=== PATIENT | female | born 1955 | race Native Hawaiian/Other Pacific Islander ===

== ENCOUNTER → 2018-05-12 | Outpatient (CLI) | payer MEDICARE ==
--- NOTE | 2018-05-12 18:49 | BD ---
EXAMINATION TYPE: Axial Bone Density DATE OF EXAM: 05/12/2018 COMPARISON: NONE CLINICAL HISTORY: 63 YR OLD FEMALE.....ICD-10 CODE: M85.80 DISORDER OF BONE DENSITY Height: 63.3 Weight: 211 FRAX RISK QUESTIONS: Secondary Osteoporosis: YES 1. Type 1 Diabetes: YES 5. Chronic liver disease: FATTY LIVER RISK FACTORS HISTORY OF: Family History of Osteoporosis: YES, HER MOTHER BUT NO FRACTURE TO HIP Diet low in dairy products/other sources of calcium: LACTOSE INTOLERANT Postmenopausal woman: YES, TOTAL HYST AT 46 YRS OLD Take estrogen and/or progesterone medications: BCP X4 1/2 YRS, IN THE PAST MEDICATIONS: Prednisone or other steroids: ASTHMA INHALERS IN PAST NONE FOR LAST 2 YRS Additional Medications: DIABETIC MEDS AND INSULIN, CALCIUM, REFLUX MEDS, STATINS FOR CHOLESTEROL Additional History: DIABETIC EXAM MEASUREMENTS: Bone mineral densitometry was performed using the [employer] System. Bone mineral density as measured about the Lumbar spine is: ----- L1-L4(G/cm2): 1.157 T Score Values are as follows: ----- L1: -1.3 ----- L2: -0.3 ----- L3: 0.4 ----- L4: .01 ----- L1-L4: -0.2 Bone mineral density FIRST BONE DENSITY AT MPH Bone mineral density about the R hip (g/cm2): 0.938 Bone mineral density about the L hip (g/cm2): 0.909 T Score values are as follows: -----R Neck: -1.7 -----L Neck: -2.1 -----R Total: -0.5 -----L Total: -0.8 Bone mineral density FIRST BONE DENSITY AT MPH FRAX%s: THERE IS A 5.4% CHANCE FOR A MAJOR OSTEOPOROTIC FX AND A 0.7% FOR HIP FX...PROBABILITY OF FX IN 10 YRS TIME IMPRESSION: Osteopenia (T Score between -2.5 and -1). There is slightly increased risk of fracture and the patient may be considered for treatment. Re-Screen 2-5 years. NOTE: T-SCORE=SD OF THE YOUNG ADULT MEAN.
--- NOTE | 2018-05-16 08:44 | MM ---
Reason for exam: screening (asymptomatic). Last mammogram was performed 13 years and 11 months ago. History: Patient is postmenopausal. Family history of breast cancer in maternal aunt. Cyst aspiration of the right breast. Took hormonal contraceptives for 4 years 6 months. Physical Findings: A clinical breast exam by your physician is recommended on an annual basis and results should be correlated with mammographic findings. MG 3D Screening Mammo W/Cad Bilateral CC and MLO view(s) were taken. Prior study comparison: April 07, 2016, mammogram. June 26, 2014, mammogram. The breast tissue is heterogeneously dense. This may lower the sensitivity of mammography. Benign appearing bilateral calcifications. No suspicious abnormality. No significant changes when compared with prior studies. ASSESSMENT: Benign, BI-RAD 2 RECOMMENDATION: Routine screening mammogram of both breasts in 1 year.
== END | disposition home or self-care (01) ==
LOC: RADMAMWWP 12:55
PROVIDERS: ATTEND Family Medicine
DX: Z12.31 Encounter for screening mammogram for malignant neoplasm of breast (principal); M85.80 Other specified disorders of bone density and structure, unspecified site
CPT/HCPCS: 77063; 77067; 77080

== ENCOUNTER 2019-05-16 20:10 | Emergency (ER) | payer MEDICARE ==
[2019-05-16 20:50] VITALS: TEMP 98.5
[2019-05-16] MEDS ORDERED: MORPHINE SULFATE 4 MG/ML SYRINGE IM STA (21:05)
[2019-05-16] MEDS ORDERED: KETOROLAC 30 MG/ML 1 ML VIAL IM STA (21:10)
--- NOTE | 2019-05-16 22:05 | XR ---
EXAMINATION TYPE: XR knee 4V LT DATE OF EXAM: 05/16/2019 COMPARISON: NONE HISTORY: Knee pain TECHNIQUE: 4 views FINDINGS: There is nondisplaced transverse fracture of the patella. There is mild soft tissue swellin g. There is knee joint effusion. There is mild narrowing and spurring of the medial femoral and tibia l condyles. Distal femur and proximal tibia and fibula appear intact. IMPRESSION: Small knee joint effusion. Mild osteoarthritis. Acute nondisplaced patella fracture.
--- NOTE | 2019-05-16 22:38 | ED ---
General Adult HPI - General Chief complaint: Fall Stated complaint: Knee Injury Time Seen by Provider: 05/16/19 20:51 Source: patient, RN notes reviewed, old records reviewed Mode of arrival: wheelchair Limitations: no limitations - History of Present Illness Initial comments: 64-year-old female patient with SC chief complaint of left knee injury. Patient reports that she was walking, became tangled on her purse, fell forward on her left flexed knee. Patient poorly currently has pain in the left anterior patellar region. His not ambulatory since fall. Denies any trauma to head or neck. Denies use of blood thinners. Denies any other complaints. Systemic: Pt denies fatigue, fever/chills, rash. Pt denies weakness, night sweats, weight loss. Neuro: Pt denies headache, visual disturbances, syncope or pre-syncope. HEENT: Pt denies ocular discharge or irritation, otalgia, rhinorrhea, pharyngitis or notable lymphadenopathy. Cardiopulmonary: Pt denies chest pain, SOB, heart palpitations, dyspnea on exertion. Abdominal/GI: Pt denies abdominal pain, n/v/d. : Pt denies dysuria, burning w/ urination, frequency/urgency. Denies new onset urinary or bowel incontinence. MSK: Pt denies myalgia, loss of strength or function in extremities. Neuro: Pt denies new onset weakness, paresthesias. - Related Data Home Medications Medication Instructions Recorded Confirmed Calcium Carbonate [Tums] 200 mg PO BID 07/08/16 07/22/16 Canagliflozin [Invokana] 100 mg PO DAILY 07/08/16 07/22/16 Cholecalciferol [Vitamin D3] 2,000 unit PO DAILY 07/08/16 07/22/16 Cyanocobalamin [Vitamin B-12] 1,000 mcg PO DAILY 07/08/16 07/22/16 Cyclobenzaprine [Flexeril] 10 mg PO TID 07/08/16 07/22/16 Hgh Serovital 4 cap PO HS 07/08/16 07/22/16 Ibuprofen [Motrin] 800 mg PO Q8HR PRN 07/08/16 07/22/16 Insulin Aspart Protam & Aspart 85 unit SQ BID 07/08/16 07/22/16 [NovoLOG MIX 70-30 Flexpen] Liraglutide [Victoza 2-Lee] 1.2 mg SQ DAILY 07/08/16 07/22/16 Losartan [Cozaar] 25 mg PO DAILY 07/08/16 07/22/16 Pramipexole [Mirapex] 1 mg PO ONCE 07/08/16 07/22/16 Rosuvastatin Calcium [Crestor] 40 mg PO DAILY 07/08/16 07/22/16 Timolol 0.5% Ophth Soln [Timoptic 1 drop BOTH EYES DAILY 07/08/16 07/22/16 0.5% Ophth Soln] Zinc 50 mg PO DAILY 07/08/16 07/22/16 metFORMIN HCL 1,000 mg PO BID 07/08/16 07/22/16 Allergies Allergy/AdvReac Type Severity Reaction Status Date / Time hydrocodone [From Lortab] Allergy Swelling Verified 05/16/19 20:50 naproxen [From Aleve] AdvReac TOLD BY Verified 05/16/19 20:50 DOCTOR NOT TO TAKE AFTER CHOLECYSTECTOMY Review of Systems ROS Statement: Those systems with pertinent positive or pertinent negative responses have been documented in the HPI. ROS Other: All systems not noted in ROS Statement are negative. Past Medical History Past Medical History: Diabetes Mellitus, Eye Disorder, GERD/Reflux, Hyperlipidemia, Hypertension, Sleep Apnea/CPAP/BIPAP History of Any Multi-Drug Resistant Organisms: None Reported Past Surgical History: Cholecystectomy, Hysterectomy, Orthopedic Surgery Additional Past Surgical History / Comment(s): cervical fusion, laser eye surg(macular edema), left knee scope, ganglion cyst r wrist, right carpal tunnel, vericose veins Past Anesthesia/Blood Transfusion Reactions: No Reported Reaction Past Psychological History: No Psychological Hx Reported Smoking Status: Never smoker Past Alcohol Use History: None Reported Past Drug Use History: None Reported - Past Family History Mother Family Medical History: No Reported History General Exam - General Exam Comments Initial Comments: Constitutional: NAD, AOX3, Pt has pleasant affect. HEENT: NC/AT, trachea midline, neck supple, no lymphadenopathy. Posterior pharynx non erythematous, without exudates. External ears appear normal, without discharge. Mucous membranes moist. Eyes PERRLA, EOM intact. There is no scleral icterus. No pallor noted. Cardiopulmonary: RRR, no murmurs, rubs or gallops, no JVD noted. Lungs CTAB in anterior and posterior biswas. No peripheral edema. Abdominal exam: Abdomen soft and non-distended. Abdomen non-tender to palpation in all 4 quadrants. Bowel sounds active in LLQ. No hepatosplenomegaly. No ecchymosis Neuro: CN II-XII grossly intact. No nuchal rigidity. No raccon eyes, no howe sign, no hemotympanum. No cervical spinal tenderness. MSK: Left anterior patella nontender palpation. Distal pulses intact and equal. Patient does have pain with flexion and extension of knee. No posterior calf tenderness bilaterally, homans sign negative bilaterally. Posterior tibialis and radial pulse +2 bilaterally. Sensation intact in upper and lower extremities. Full active ROM in upper and lower extremities, 5/5 stregnth. Limitations: no limitations Course Vital Signs 05/16/19 20:48 Temperature 98.5 F Pulse Rate 89 Respiratory 20 Rate Blood Pressure 123/67 O2 Sat by Pulse 99 Oximetry Medical Decision Making - Medical Decision Making 64-year-old female patient with CVG complaint left knee pain after falling off flexed knee. Patient also in stable, afebrile. Physical exam displayed left anterior knee pain. Neurovascular intact. Plain films displayed a non- displaced patellar fracture. Patient placed in the immobilizer. Discharged wi th orthopedic follow-up. Case discussed with Dr. Carranza. Disposition Clinical Impression: Patella fracture Disposition: HOME SELF-CARE Condition: Stable Instructions (If sedation given, give patient instructions): Fall Prevention (ED), Patellar Fracture (ED) Additional Instructions: Patient to adhere to previously discussed treatment plan and will take medication(s) as directed. Patient to follow up with PCP in 1-2 days. Patient to return to ED if symptoms do not improve. Continued to her knee immobilizer. Follow up with orthopedic consult tomorrow. Use crutches, do not bear weight on left flexion. Is patient prescribed a controlled substance at d/c from ED?: No Referrals: Melinda Chau MD [Primary Care Provider] - 1-2 days Rahul Stephenson MD [STAFF PHYSICIAN] - 1-2 days
[2019-05-16 23:24] VITALS: BP 124/56; PULSE 90; RESP 18
== END 2019-05-16 23:26 | disposition home or self-care (01) ==
LOC: EC 20:10
DX: S82.002A Unspecified fracture of left patella, initial encounter for closed fracture (principal); E11.9 Type 2 diabetes mellitus without complications; E78.5 Hyperlipidemia, unspecified; I10 Essential (primary) hypertension; G47.30 Sleep apnea, unspecified; Z88.5 Allergy status to narcotic agent; Z88.6 Allergy status to analgesic agent; Z79.4 Long term (current) use of insulin; Z79.899 Other long term (current) drug therapy; Z86.69 Personal history of other diseases of the nervous system and sense organs; Z99.89 Dependence on other enabling machines and devices; W01.0XXA Fall on same level from slipping, tripping and stumbling without subsequent striking against object, initial encounter; Y93.01 Activity, walking, marching and hiking; Y92.89 Other specified places as the place of occurrence of the external cause; Z53.8 Procedure and treatment not carried out for other reasons
CPT/HCPCS: 73564; 99284; 96372; L1830; J1885

== ENCOUNTER → 2019-10-02 | Outpatient (CLI) | payer MEDICARE ==
--- NOTE | 2019-10-02 13:22 | MR ---
MR neck with and without contrast HISTORY: Posterior neck mass Multiplanar multisequence and postcontrast images obtained through the neck following 9.5 cc Gadavist IV. Overlying marker placed at the site of patient's clinical abnormality. Correlation to prior MR cervical spine 09/08/2011 At the site of the patient's overlying marker in the posterior neck there is underlying normal fat si gnal present as well as some irregular linear low signal on T1 and T2-weighted sequences possibly rel ated to patient's prior surgery. Previous identification of a mass which shows fat signal on prior ex am is no longer seen. There is no abnormal enhancement following contrast administration. Postop changes noted status post anterior cervical fusion and discectomy at C4-5, there is susceptibi lity artifact due to patient's hardware. Skull base shows no evident abnormality. Parotid glands, sub lingual glands show symmetric appearance. Airway appears patent. No evident superior mediastinal or c ervical adenopathy. A lobulated focus, cluster of grapes appearance at the level of the right distal clavicle immediately posterior on coronal image 20 series 301, axial image 14 series 401 is T1 isointense, T2 hyperintens e and measures 1.8 x 1.4 x 1.2 cm, no enhancement. IMPRESSION: Findings at the clinical abnormality may be related to patient's scar. Previously identif ied probable lipoma is no longer seen, correlate for any history of prior surgical excision. Postop c hangshara. Probable ganglion cyst partially visualized towards the right shoulder as described.
== END | disposition home or self-care (01) ==
LOC: RADMRIMAIN 09:10
PROVIDERS: ATTEND Surgery
DX: R22.1 Localized swelling, mass and lump, neck (principal)
CPT/HCPCS: 70543; A9585

== ENCOUNTER 2021-04-12 08:33 | Inpatient (IN) | payer MEDICARE ==
[2021-04-12 09:08] LABS: Glucose,Whole Blood >600 mg/dL (75-99)
[2021-04-12] MEDS ORDERED: ONDANSETRON 4 MG/2 ML VIAL IVP STA (09:09)
[2021-04-12] MEDS ORDERED: SODIUM CHLORIDE 0.9% 1,000 ML IV STA (09:09)
[2021-04-12 09:31] LABS: VBG PH 6.92 (7.31-7.41)
[2021-04-12] MEDS ORDERED: SODIUM BICARB 8.4% 50 ML SYR (1 MEQ/ML) IV STA (09:32)
[2021-04-12] MEDS ORDERED: ACETAMINOPHEN TAB 500 MG TAB PO STA (09:32)
[2021-04-12 09:35] LABS: ALT 48 U/L (4-34); AST 69 U/L (14-36); African American GFR (CKD) 15 (>60 ml/min/1.73 sqM); Albumin 4.2 g/dL (3.5-5.0); Alkaline Phosphatase 123 U/L (38-126); Blood Urea Nitrogen 54 mg/dL (7-17); Calcium 8.8 mg/dL (8.4-10.2); Chloride 92 mmol/L (98-107); Creatine Kinase 184 U/L (30-135); Magnesium 2.8 mg/dL (1.6-2.3); Non-African American GFR(CKD) 13 (>60 ml/min/1.73 sqM); Sodium 130 mmol/L (137-145); Total Bilirubin 0.5 mg/dL (0.2-1.3); Total Protein 7.1 g/dL (6.3-8.2)
[2021-04-12 09:46] LABS: INR 0.9 (<1.2); Partial Thromboplastin Time 24.3 sec (22.0-30.0); Prothrombin Time 9.7 sec (9.0-12.0)
[2021-04-12 09:49] LABS: Glucose 714 mg/dL (74-99); Potassium 6.6 mmol/L (3.5-5.1)
[2021-04-12 09:50] LABS: Carbon Dioxide <5 mmol/L (22-30)
[2021-04-12] MEDS ORDERED: INSULIN REGULAR 100 UNIT/ML VIAL (IV) IV ONE (09:54)
--- NOTE | 2021-04-12 09:54 | ED ---
General Adult HPI - General Chief complaint: Nausea/Vomiting/Diarrhea Stated complaint: weak/vomiting/throat sore/fever Source: patient Mode of arrival: ambulatory - History of Present Illness Initial comments: 66 year old female presents with a history of insulin dependent diabetes. Patient states that she's been feeling sick for the past 6 days with nausea, vomiting and diarrhea. She also states she's been short of breath with a sore throat. Denies sick contacts with similar symptoms. No cold exposure. It has been Covid vaccinated by [employer] earlier this year. States that due to her symptoms she has not been eating or drinking. She is also not been taking her insulin as directed. She normally does not take her sugars. Denies history of DKA. Admits to fevers. She has been taking Pepto and Vilma-Cascade at home for her symptoms without improvement. She denies headaches or visual changes. No chest pain. No abdominal pain. No other alleviating, precipitating or modifying factors - Related Data Home Medications Medication Instructions Recorded Confirmed Insulin Aspart Protam & Aspart 85 unit SQ BID 07/08/16 04/12/21 [NovoLOG MIX 70-30 Flexpen] Losartan [Cozaar] 25 mg PO DAILY 07/08/16 04/12/21 Rosuvastatin Calcium [Crestor] 40 mg PO DAILY 07/08/16 04/12/21 metFORMIN HCL [Glucophage] 1,000 mg PO BID 07/08/16 04/12/21 Canagliflozin [Invokana] 300 mg PO DAILY 04/12/21 04/12/21 Omeprazole 20 mg PO DAILY 04/12/21 04/12/21 Pramipexole [Mirapex] 0.5 mg PO BID 04/12/21 04/12/21 Allergies Allergy/AdvReac Type Severity Reaction Status Date / Time hydrocodone [From Lortab] Allergy Swelling Verified 04/12/21 10:11 naproxen [From Aleve] AdvReac TOLD BY Verified 04/12/21 10:11 DOCTOR NOT TO TAKE AFTER CHOLECYSTECTOMY Review of Systems ROS Statement: Those systems with pertinent positive or pertinent negative responses have been documented in the HPI. ROS Other: All systems not noted in ROS Statement are negative. Past Medical History Past Medical History: Diabetes Mellitus, Eye Disorder, GERD/Reflux, Hyperlipidemia, Hypertension, Sleep Apnea/CPAP/BIPAP History of Any Multi-Drug Resistant Organisms: None Reported Past Surgical History: Cholecystectomy, Hysterectomy, Orthopedic Surgery Additional Past Surgical History / Comment(s): cervical fusion, laser eye surg(macular edema), left knee scope, ganglion cyst r wrist, right carpal tunnel, vericose veins Past Anesthesia/Blood Transfusion Reactions: No Reported Reaction Past Psychological History: No Psychological Hx Reported Smoking Status: Never smoker Past Alcohol Use History: None Reported Past Drug Use History: None Reported - Past Family History Mother Family Medical History: No Reported History Course Vital Signs 04/12/21 04/12/21 04/12/21 08:44 09:03 11:04 Temperature 100.9 F H Pulse Rate 62 89 98 Respiratory 24 21 18 Rate Blood Pressure 97/51 112/56 O2 Sat by Pulse 97 94 L 98 Oximetry 04/12/21 04/12/21 11:35 13:53 Temperature Pulse Rate 98 96 Respiratory 16 18 Rate Blood Pressure 92/79 104/58 O2 Sat by Pulse 99 100 Oximetry EKG Findings - EKG Comments: EKG Findings:: EKG demonstrates normal sinus rhythm with a ventricular rate of 89. CA interval 140. QRS 86. QTC of 464. No acute ST segment elevations or depressions. Procedures - [place] Protocol (Time Out) Nurse: Zaire Kessler Medical Decision Making - Medical Decision Making Upon arrival patient is placed in room 8. Thorough history and physical exam was performed. Bedside Accu-Chek was performed due to notable Kussmal respirations. Bedside Accu-Chek is noted to be high. Patient was given a 2 L bolus of normal saline. Laboratory studies were conducted and reviewed. Potassium noted to be 6.6. CO2 less than 5. Creatinine 3.4. Glucose 714. Acetone is positive. Covid is detected. Chest x-ray demonstrates low lung volumes. Patient was given an amp of bicarb and started on a bicarbonate drip due to pH of 6.92 with bicarb level of 4. She has received calcium gluconate and 10 units of insulin due to her hyperkalemia. Unable to provide the patient albuterol treatment due to Covid status. After 2 L of fluid is instilled I did order an insulin drip to be started and a titrating rate with every hour Accu- Cheks. The patient is reevaluated and does appear much more alert in the exam room. His discuss with her that she needs to be hospitalized in the ICU for which the patient did understand. Called and spoke with Dr. Zafar who agreed to admit the patient and Dr. Gilmore who agreed to admit the patient into the ICU. Patient remained in stable condition awaiting transfer - Lab Data Result diagrams: 04/12/21 09:13 04/12/21 09:13 Lab Results 04/12/21 04/12/21 04/12/21 Range/Units 09:06 09:13 09:13 WBC 10.2 (3.8-10.6) k/uL RBC 4.95 (3.80-5.40) m/uL Hgb 15.2 (11.4-16.0) gm/dL Hct 52.1 H (34.0-46.0) % MCV 105.3 H (80.0-100.0) fL MCH 30.7 (25.0-35.0) pg MCHC 29.2 L (31.0-37.0) g/dL RDW 13.2 (11.5-15.5) % Plt Count 303 (150-450) k/uL MPV 8.5 Neutrophils % (Manual) 69 % Band Neuts % (Manual) 3 % Lymphocytes % (Manual) 14 % Monocytes % (Manual) 13 % Basophils % (Manual) 1 % Neutrophils # (Manual) 7.30 (1.3-7.7) k/uL Lymphocytes # (Manual) 1.43 (1.0-4.8) k/uL Monocytes # (Manual) 1.33 H (0-1.0) k/uL Basophils # (Manual) 0.10 (0-0.2) k/uL Nucleated RBCs 0 (0-0) /100 WBC Manual Slide Review Performed Hypochromasia Marked Poikilocytosis (manual Present Macrocytosis Slight Crenated Cell Present PT 9.7 (9.0-12.0) sec INR 0.9 (<1.2) APTT 24.3 (22.0-30.0) sec Sample Site ABG pH (7.35-7.45) ABG pCO2 (35-45) mmHg ABG pO2 (83-108) mmHg ABG O2 Saturation (94-97) % Nba Test VBG pH (7.31-7.41) VBG pCO2 (37-51) mmHg VBG HCO3 (24-28) mmol/L FiO2 % Sodium (137-145) mmol/L Potassium (3.5-5.1) mmol/L Chloride (98-107) mmol/L Carbon Dioxide (22-30) mmol/L Anion Gap mmol/L BUN (7-17) mg/dL Creatinine (0.52-1.04) mg/dL Est GFR (CKD-EPI)AfAm (>60 ml/min/1.73 sqM) Est GFR (CKD-EPI)NonAf (>60 ml/min/1.73 sqM) Glucose (74-99) mg/dL POC Glucose (mg/dL) >600 H (75-99) mg/dL POC Glu Machine Guide Base Winder ID Zaire Kessler Plasma Lactic Acid Terrence (0.7-2.0) mmol/L Calcium (8.4-10.2) mg/dL Magnesium (1.6-2.3) mg/dL Total Bilirubin (0.2-1.3) mg/dL AST (14-36) U/L ALT (4-34) U/L Alkaline Phosphatase (38-126) U/L Creatine Kinase (30-135) U/L Troponin I (0.000-0.034) ng/mL Total Protein (6.3-8.2) g/dL Albumin (3.5-5.0) g/dL TSH (0.465-4.680) mIU/L Urine Color Urine Appearance (Clear) Urine pH (5.0-8.0) Ur Specific [place] (1.001-1.035) Urine Protein (Negative) Urine Glucose (UA) (Negative) Urine Ketones (Negative) Urine Blood (Negative) Urine Nitrite (Negative) Urine Bilirubin (Negative) Urine Urobilinogen (<2.0) mg/dL Ur Leukocyte Esterase (Negative) Urine RBC (0-5) /hpf Urine WBC (0-5) /hpf Ur Squamous Epith Cells (0-4) /hpf Hyaline Casts (0-2) /lpf Urine Mucus (None) /hpf Acetone, Qual (Negative) Coronavirus (PCR) (Not Detectd) 04/12/21 04/12/21 04/12/21 Range/Units 09:13 09:13 09:13 WBC (3.8-10.6) k/uL RBC (3.80-5.40) m/uL Hgb (11.4-16.0) gm/dL Hct (34.0-46.0) % MCV (80.0-100.0) fL MCH (25.0-35.0) pg MCHC (31.0-37.0) g/dL RDW (11.5-15.5) % Plt Count (150-450) k/uL MPV Neutrophils % (Manual) % Band Neuts % (Manual) % Lymphocytes % (Manual) % Monocytes % (Manual) % Basophils % (Manual) % Neutrophils # (Manual) (1.3-7.7) k/uL Lymphocytes # (Manual) (1.0-4.8) k/uL Monocytes # (Manual) (0-1.0) k/uL Basophils # (Manual) (0-0.2) k/uL Nucleated RBCs (0-0) /100 WBC Manual Slide Review Hypochromasia Poikilocytosis (manual Macrocytosis Crenated Cell PT (9.0-12.0) sec INR (<1.2) APTT (22.0-30.0) sec Sample Site ABG pH (7.35-7.45) ABG pCO2 (35-45) mmHg ABG pO2 (83-108) mmHg ABG O2 Saturation (94-97) % Nba Test VBG pH (7.31-7.41) VBG pCO2 (37-51) mmHg VBG HCO3 (24-28) mmol/L FiO2 % Sodium 130 L (137-145) mmol/L Potassium 6.6 H* (3.5-5.1) mmol/L Chloride 92 L (98-107) mmol/L Carbon Dioxide <5 L* (22-30) mmol/L Anion Gap mmol/L BUN 54 H (7-17) mg/dL Creatinine 3.47 H (0.52-1.04) mg/dL Est GFR (CKD-EPI)AfAm 15 (>60 ml/min/1.73 sqM) Est GFR (CKD-EPI)NonAf 13 (>60 ml/min/1.73 sqM) Glucose 714 H* (74-99) mg/dL POC Glucose (mg/dL) (75-99) mg/dL POC Glu Machine Guide Base Winder ID Plasma Lactic Acid Terrence 1.1 (0.7-2.0) mmol/L Calcium 8.8 (8.4-10.2) mg/dL Magnesium 2.8 H (1.6-2.3) mg/dL Total Bilirubin 0.5 (0.2-1.3) mg/dL AST 69 H (14-36) U/L ALT 48 H (4-34) U/L Alkaline Phosphatase 123 (38-126) U/L Creatine Kinase 184 H (30-135) U/L Troponin I (0.000-0.034) ng/mL Total Protein 7.1 (6.3-8.2) g/dL Albumin 4.2 (3.5-5.0) g/dL TSH 0.909 (0.465-4.680) mIU/L Urine Color Light Yellow Urine Appearance Cloudy H (Clear) Urine pH 5.0 (5.0-8.0) Ur Specific [place] 1.017 (1.001-1.035) Urine Protein 1+ H (Negative) Urine Glucose (UA) 4+ H (Negative) Urine Ketones 3+ H (Negative) Urine Blood Moderate H (Negative) Urine Nitrite Negative (Negative) Urine Bilirubin Negative (Negative) Urine Urobilinogen <2.0 (<2.0) mg/dL Ur Leukocyte Esterase Negative (Negative) Urine RBC 1 (0-5) /hpf Urine WBC 2 (0-5) /hpf Ur Squamous Epith Cells <1 (0-4) /hpf Hyaline Casts 5 H (0-2) /lpf Urine Mucus Rare H (None) /hpf Acetone, Qual Positive (Negative) Coronavirus (PCR) (Not Detectd) 04/12/21 04/12/21 04/12/21 Range/Units 09:13 09:13 09:13 WBC (3.8-10.6) k/uL RBC (3.80-5.40) m/uL Hgb (11.4-16.0) gm/dL Hct (34.0-46.0) % MCV (80.0-100.0) fL MCH (25.0-35.0) pg MCHC (31.0-37.0) g/dL RDW (11.5-15.5) % Plt Count (150-450) k/uL MPV Neutrophils % (Manual) % Band Neuts % (Manual) % Lymphocytes % (Manual) % Monocytes % (Manual) % Basophils % (Manual) % Neutrophils # (Manual) (1.3-7.7) k/uL Lymphocytes # (Manual) (1.0-4.8) k/uL Monocytes # (Manual) (0-1.0) k/uL Basophils # (Manual) (0-0.2) k/uL Nucleated RBCs (0-0) /100 WBC Manual Slide Review Hypochromasia Poikilocytosis (manual Macrocytosis Crenated Cell PT (9.0-12.0) sec INR (<1.2) APTT (22.0-30.0) sec Sample Site ABG pH (7.35-7.45) ABG pCO2 (35-45) mmHg ABG pO2 (83-108) mmHg ABG O2 Saturation (94-97) % Nba Test VBG pH 6.92 L* (7.31-7.41) VBG pCO2 21 L (37-51) mmHg VBG HCO3 4 L* (24-28) mmol/L FiO2 % Sodium (137-145) mmol/L Potassium (3.5-5.1) mmol/L Chloride (98-107) mmol/L Carbon Dioxide (22-30) mmol/L Anion Gap mmol/L BUN (7-17) mg/dL Creatinine (0.52-1.04) mg/dL Est GFR (CKD-EPI)AfAm (>60 ml/min/1.73 sqM) Est GFR (CKD-EPI)NonAf (>60 ml/min/1.73 sqM) Glucose (74-99) mg/dL POC Glucose (mg/dL) (75-99) mg/dL POC Glu Machine Guide Base Winder ID Plasma Lactic Acid Terrence (0.7-2.0) mmol/L Calcium (8.4-10.2) mg/dL Magnesium (1.6-2.3) mg/dL Total Bilirubin (0.2-1.3) mg/dL AST (14-36) U/L ALT (4-34) U/L Alkaline Phosphatase (38-126) U/L Creatine Kinase (30-135) U/L Troponin I <0.012 (0.000-0.034) ng/mL Total Protein (6.3-8.2) g/dL Albumin (3.5-5.0) g/dL TSH (0.465-4.680) mIU/L Urine Color Urine Appearance (Clear) Urine pH (5.0-8.0) Ur Specific [place] (1.001-1.035) Urine Protein (Negative) Urine Glucose (UA) (Negative) Urine Ketones (Negative) Urine Blood (Negative) Urine Nitrite (Negative) Urine Bilirubin (Negative) Urine Urobilinogen (<2.0) mg/dL Ur Leukocyte Esterase (Negative) Urine RBC (0-5) /hpf Urine WBC (0-5) /hpf Ur Squamous Epith Cells (0-4) /hpf Hyaline Casts (0-2) /lpf Urine Mucus (None) /hpf Acetone, Qual (Negative) Coronavirus (PCR) Detected A (Not Detectd) 04/12/21 04/12/21 Range/Units 09:56 11:00 WBC (3.8-10.6) k/uL RBC (3.80-5.40) m/uL Hgb (11.4-16.0) gm/dL Hct (34.0-46.0) % MCV (80.0-100.0) fL MCH (25.0-35.0) pg MCHC (31.0-37.0) g/dL RDW (11.5-15.5) % Plt Count (150-450) k/uL MPV Neutrophils % (Manual) % Band Neuts % (Manual) % Lymphocytes % (Manual) % Monocytes % (Manual) % Basophils % (Manual) % Neutrophils # (Manual) (1.3-7.7) k/uL Lymphocytes # (Manual) (1.0-4.8) k/uL Monocytes # (Manual) (0-1.0) k/uL Basophils # (Manual) (0-0.2) k/uL Nucleated RBCs (0-0) /100 WBC Manual Slide Review Hypochromasia Poikilocytosis (manual Macrocytosis Crenated Cell PT (9.0-12.0) sec INR (<1.2) APTT (22.0-30.0) sec Sample Site rbrac ABG pH 6.92 L* (7.35-7.45) ABG pCO2 <15 L* (35-45) mmHg ABG pO2 141 H (83-108) mmHg ABG O2 Saturation 98.2 H (94-97) % Nba Test Yes VBG pH (7.31-7.41) VBG pCO2 (37-51) mmHg VBG HCO3 (24-28) mmol/L FiO2 21 % Sodium (137-145) mmol/L Potassium (3.5-5.1) mmol/L Chloride (98-107) mmol/L Carbon Dioxide (22-30) mmol/L Anion Gap mmol/L BUN (7-17) mg/dL Creatinine (0.52-1.04) mg/dL Est GFR (CKD-EPI)AfAm (>60 ml/min/1.73 sqM) Est GFR (CKD-EPI)NonAf (>60 ml/min/1.73 sqM) Glucose (74-99) mg/dL POC Glucose (mg/dL) >600 H (75-99) mg/dL POC Glu Machine Guide Base Winder Karan Olvera Plasma Lactic Acid Terrence (0.7-2.0) mmol/L Calcium (8.4-10.2) mg/dL Magnesium (1.6-2.3) mg/dL Total Bilirubin (0.2-1.3) mg/dL AST (14-36) U/L ALT (4-34) U/L Alkaline Phosphatase (38-126) U/L Creatine Kinase (30-135) U/L Troponin I (0.000-0.034) ng/mL Total Protein (6.3-8.2) g/dL Albumin (3.5-5.0) g/dL TSH (0.465-4.680) mIU/L Urine Color Urine Appearance (Clear) Urine pH (5.0-8.0) Ur Specific [place] (1.001-1.035) Urine Protein (Negative) Urine Glucose (UA) (Negative) Urine Ketones (Negative) Urine Blood (Negative) Urine Nitrite (Negative) Urine Bilirubin (Negative) Urine Urobilinogen (<2.0) mg/dL Ur Leukocyte Esterase (Negative) Urine RBC (0-5) /hpf Urine WBC (0-5) /hpf Ur Squamous Epith Cells (0-4) /hpf Hyaline Casts (0-2) /lpf Urine Mucus (None) /hpf Acetone, Qual (Negative) Coronavirus (PCR) (Not Detectd) Disposition Clinical Impression: Type 2 diabetes mellitus, DKA, type 2, Pyrexia, COVID-19, Hyperkalemia Disposition: ADMITTED IP TO THIS HOSP Condition: Serious Is patient prescribed a controlled substance at d/c from ED?: No Decision to Admit Reason: Admit from EC Decision Date: 04/12/21 Decision Time: 11:16
--- NOTE | 2021-04-12 09:58 | XR ---
EXAMINATION TYPE: XR chest 1V portable DATE OF EXAM: 04/12/2021 COMPARISON: None HISTORY: 66 years Female. STUDY INDICATION GIVEN: sob, cough . TECHNIQUE: Chest radiograph IMPRESSION: Low lung volumes accentuate interstitial markings. Minimal bibasilar subsegmental atelectasis left lo wer lobe greater than right. Cannot exclude left lower lobe infiltrate. No pneumothorax or pleural ef fusion. Normal heart size. No acute osseous abnormality.
[2021-04-12 10:00] LABS: ABG Oxygen Saturation 98.2 % (94-97); ABG PO2 141 mmHg (83-108); Allen Test Performed? Yes
[2021-04-12] MEDS ORDERED: INSULIN REGULAR 100 UNIT in SODIUM CHLORIDE 0.9% 100 ML IV SCH (10:00)
[2021-04-12 10:03] LABS: ABG PCO2 <15 mmHg (35-45); ABG PH 6.92 (7.35-7.45)
[2021-04-12 10:21] LABS: HCT 52.1 % (34.0-46.0); HGB 15.2 gm/dL (11.4-16.0); Hypochromasia Marked; MCH 30.7 pg (25.0-35.0); MCHC 29.2 g/dL (31.0-37.0); MCV 105.3 fL (80.0-100.0); Macrocytosis Slight; Mean Platelet Volume 8.5; Platelet Count 303 k/uL (150-450); RBC 4.95 m/uL (3.80-5.40); RDW 13.2 % (11.5-15.5); WBC 10.2 k/uL (3.8-10.6)
[2021-04-12] MEDS ORDERED: CALCIUM GLUCONATE 2 GM in SODIUM CHLORIDE 0.9% 100 ML IVPB ONE (10:30)
[2021-04-12] MEDS ORDERED: DEXTROSE 5% IN WATER 1,000 ML with SODIUM BICARB (1 MEQ/ML) 150 ML IV SCH (10:30)
[2021-04-12 11:01] LABS: Glucose,Whole Blood >600 mg/dL (75-99)
[2021-04-12 11:04] LABS: Band Neutrophils % 3 %; Lymphocytes # (M) 1.43 k/uL (1.0-4.8); Monocytes # (M) 1.33 k/uL (0-1.0); Neutrophils % (M) 69 %; Nucleated Red Blood Cells 0 /100 WBC (0-0); Total Cells Counted 100
[2021-04-12 11:05] LABS: Crenated RBC Present; Poikilocytosis (M) Present
[2021-04-12] MEDS ORDERED: NALOXONE 0.4 MG/ML 1 ML VIAL IV PRN (11:16)
[2021-04-12 11:46] LABS: Appearance,Urine Cloudy (Clear); Bilirubin,Urine Negative (Negative); Blood,Urine Moderate (Negative); Color,Urine Light Yellow; Glucose,Urine (UA) 4+ (Negative); Hyaline Casts,Urine 5 /lpf (0-2); Leukocyte Esterase,Urine Negative (Negative); Mucus,Urine Rare /hpf; Nitrite,Urine Negative (Negative); Protein,Urine 1+ (Negative); RBC,Urine 1 /hpf (0-5); Specific Gravity,Urine 1.017 (1.001-1.035); Squamous Epithelial Cell,Urine <1 /hpf (0-4); Urobilinogen,Urine <2.0 mg/dL (<2.0); WBC,Urine 2 /hpf (0-5)
[2021-04-12] MEDS: PANTOPRAZOLE 40 MG/10 ML VIAL IV SCH (11:46)
--- NOTE | 2021-04-12 12:00 | P.HPIM ---
History of Present Illness H&P Date: 04/12/21 Chief Complaint: acute respiratory failure, DKA, acute COVID-19 pneumonitis HISTORY OF PRESENT ILLNESS 66-year-old female one of Dr. Chau's patient with past medical history of 2 diabetes on insulin mix 85 units twice a day along with Invokana and metforminwas her blood sugar has been quite bit elevated lately. Patient was vaccinated against the COVID-19 earlier in 2019 developed to be sick for the last 10 days has not been able to take her insulin or oral hypoglycemic agent for the last week. Patient presented to the emergency department todaywith severe gastrointestinal symptom with fever chills nausea vomiting and diarrhea along with sore throat her sickness episode started over 10 days ago, patient has not been able to eat or drink lately she was seen at the emergency department was in DKA with positive acetone with blood sugar over 700 at the time. Patient was running fever and chills, also found to be in acute kidney failure with creatinine of 3.47 with GFR of 13 and potassium of 6.6. Patient was started on IV hydration, Flanagan catheter was in place, started on IV insulin drip she will be admitted to the ICU will be seen pulmonary and nephrology. her COVID-19 was positivechest x-ray showed low lung volume with interstitial marking minimal bibasilar subsegmental atelectasis left lower lobe greater than the right with left lower lobe infiltrate no pneumothorax or pleural effusion. REVIEW OF SYSTEMS Constitutional: positive fever or chills with mild respiratory failure patient is more delirious at the time. EENT: No headache. No blurred vision or double vision, no loss of vision. No l oss of Hearing, no ringing in the ears, no dizziness. No nasal drainage or congestion. No epistaxis. No sore throat. Lungs: slight shortness of breath with cough and wheezes. Cardiovascular: No chest pain, no lower extremity edema. No palpitations. No paroxysmal nocturnal dyspnea. No orthopnea. No lightheadedness or dizziness. No syncopal episodes. Abdominal: positive abdominal discomfort with nausea vomiting diarrhea no constipation no bloody or tarry stool significant lack of appetite and intake. Genitourinary: decrease urine output with no urinary retention decrease frequency and urgency. Musculoskeletal: No myalgias. No muscle weakness, no gait dysfunction, no frequent falls. No back pain. No neck pain. Integumentary: No wounds, no lesions. No rash or pruritus. No unusual bruising. No change in hair or nails. Neurologic: No aphasia. No facial droop. No change in mentation. No head injury. No headache. No paralysis. No paresthesia. Psychiatric: No depression. No anxiety. No mood swings. Endocrine: No abnormal blood sugars. No weight change. No excessive sweating or thirst. No cold intolerance. SOCIAL HISTORY patient does not smoke, no alcohol abuse, she is retired and live alone. FAMILY HISTORY both parents passed in their 60s and 70s from atherosclerotic heart disease, patient had 1 son who from motor vehicle accident and she claims she was only child for her parents. PHYSICAL EXAMINATION Gen: This is 66-year-old look very sick in mild respiratory distress and very delirious at the time of examination she is not able to stay awake for the whole time require higher flow oxygen to keep pulse ox above 90 percentile. HEENT: Head is atraumatic, normocephalic. Pupils equal, round. Sclerae is anicteric, dry mucosa. NECK: Supple. No JVD. No lymphadenopathy. No thyromegaly. LUNGS: decreased breath sound bilaterally specially the left lower lobe compared to the right with mild rhonchi crackles and wheezes. HEART: Regular rate and rhythm. No murmur. ABDOMEN: Soft. Bowel sounds are present. No masses. No tenderness. EXTREMITIES: No pedal edema. No calf tenderness. NEUROLOGICAL: Patient is awake with mild confusion, alert current confuse. Cranial nerves 2 through 12 are grossly intact. moving her 4 extremity with generalized weakness. ASSESSMENT AND PLAN 1.acute respiratory failure: Combination of DKA along with covert pneumonitis, patient be admitted to the ICU, continue oxygen, continue updraft, will be started on smaller dose of steroid specially with her DKA for now pulmonary consultation will be done. 2. DKA: Patient has not been able to take her insulin or oral hypoglycemic agent, she is acetone positive with low bicarbonate and pH of 6.92, continue patient on IV hydration along with insulin drip continue to follow the DKA protocol for now. 3. acute COVID-19 pneumonitis: Patient be admitted to the hospital will continue supportive care for COVID-19 she will be started on antiviral medication along with steroid zinc vitamin D, infectious disease will be consulted as well. 4. acute kidney failure: Most likely the combination of prerenal along with COVID-19 pneumonitis and DKA, continue to treat her hyperkalemia continue hydration watch BUN/creatinine twice a day, ultrasound of the kidney will be done. 5. type 2 diabetes was on insulin: Patient was on high dose of 7030 at 85 units twice a day beside metformin and invokana, hold off on oral medication for now will continue insulin drip and convert patient asked to insulin short on long acting by tomorrow. 6. hypertension: Was on losartan would hold off medication at least 24 hours and resume with the kidney function improving. 7. hyperlipidemia: Was on Crestor 40 mg a day again will hold medication for 24 hours and resume it by tomorrow. 8. GI prophylaxis: Patient will be on omeprazole 20 mg a day 9. DVT prophylaxis: Was start patient on Lovenox 40 mg subcutaneous daily. CODE STATUS: Full code Patient will be admitted to the hospital for a minimum of 2 night stay. Past Medical History Past Medical History: Diabetes Mellitus, Eye Disorder, GERD/Reflux, Hyperlipidemia, Hypertension, Sleep Apnea/CPAP/BIPAP History of Any Multi-Drug Resistant Organisms: None Reported Past Surgical History: Cholecystectomy, Hysterectomy, Orthopedic Surgery Additional Past Surgical History / Comment(s): cervical fusion, laser eye s urg(macular edema), left knee scope, ganglion cyst r wrist, right carpal tunnel, vericose veins Past Anesthesia/Blood Transfusion Reactions: No Reported Reaction Past Psychological History: No Psychological Hx Reported Smoking Status: Never smoker Past Alcohol Use History: None Reported Past Drug Use History: None Reported - Past Family History Mother Family Medical History: No Reported History Medications and Allergies Home Medications Medication Instructions Recorded Confirmed Type Insulin Aspart Protam & Aspart 85 unit SQ BID 07/08/16 04/12/21 History [NovoLOG MIX 70-30 Flexpen] Losartan [Cozaar] 25 mg PO DAILY 07/08/16 04/12/21 History Rosuvastatin Calcium [Crestor] 40 mg PO DAILY 07/08/16 04/12/21 History metFORMIN HCL [Glucophage] 1,000 mg PO BID 07/08/16 04/12/21 History Canagliflozin [Invokana] 300 mg PO DAILY 04/12/21 04/12/21 History Omeprazole 20 mg PO DAILY 04/12/21 04/12/21 History Pramipexole [Mirapex] 0.5 mg PO BID 04/12/21 04/12/21 History Allergies Allergy/AdvReac Type Severity Reaction Status Date / Time hydrocodone [From Lortab] Allergy Swelling Verified 04/12/21 10:11 naproxen [From Aleve] AdvReac TOLD BY Verified 04/12/21 10:11 DOCTOR NOT TO TAKE AFTER CHOLECYSTECTOMY Physical Exam Vitals: Vital Signs Temp Pulse Resp BP Pulse Ox 04/12/21 11:04 98 18 112/56 98 04/12/21 08:44 100.9 F H 62 24 97/51 97 Intake and Output 04/11/21 04/12/21 04/12/21 22:59 06:59 14:59 Other: Weight 98.883 kg Results CBC & Chem 7: 04/12/21 09:13 04/12/21 09:13 Labs: Abnormal Lab Results - Last 24 Hours (Table) 04/12/21 04/12/21 04/12/21 Range/Units 09:06 09:13 09:13 Hct 52.1 H (34.0-46.0) % MCV 105.3 H (80.0-100.0) fL MCHC 29.2 L (31.0-37.0) g/dL Monocytes # (Manual) 1.33 H (0-1.0) k/uL ABG pH (7.35-7.45) ABG pCO2 (35-45) mmHg ABG pO2 (83-108) mmHg ABG O2 Saturation (94-97) % VBG pH (7.31-7.41) VBG pCO2 (37-51) mmHg VBG HCO3 (24-28) mmol/L Sodium 130 L (137-145) mmol/L Potassium 6.6 H* (3.5-5.1) mmol/L Chloride 92 L (98-107) mmol/L Carbon Dioxide <5 L* (22-30) mmol/L BUN 54 H (7-17) mg/dL Creatinine 3.47 H (0.52-1.04) mg/dL Glucose 714 H* (74-99) mg/dL POC Glucose (mg/dL) >600 H (75-99) mg/dL Magnesium 2.8 H (1.6-2.3) mg/dL AST 69 H (14-36) U/L ALT 48 H (4-34) U/L Creatine Kinase 184 H (30-135) U/L Coronavirus (PCR) (Not Detectd) 04/12/21 04/12/21 04/12/21 Range/Units 09:13 09:13 09:56 Hct (34.0-46.0) % MCV (80.0-100.0) fL MCHC (31.0-37.0) g/dL Monocytes # (Manual) (0-1.0) k/uL ABG pH 6.92 L* (7.35-7.45) ABG pCO2 <15 L* (35-45) mmHg ABG pO2 141 H (83-108) mmHg ABG O2 Saturation 98.2 H (94-97) % VBG pH 6.92 L* (7.31-7.41) VBG pCO2 21 L (37-51) mmHg VBG HCO3 4 L* (24-28) mmol/L Sodium (137-145) mmol/L Potassium (3.5-5.1) mmol/L Chloride (98-107) mmol/L Carbon Dioxide (22-30) mmol/L BUN (7-17) mg/dL Creatinine (0.52-1.04) mg/dL Glucose (74-99) mg/dL POC Glucose (mg/dL) (75-99) mg/dL Magnesium (1.6-2.3) mg/dL AST (14-36) U/L ALT (4-34) U/L Creatine Kinase (30-135) U/L Coronavirus (PCR) Detected A (Not Detectd) 04/12/21 Range/Units 11:00 Hct (34.0-46.0) % MCV (80.0-100.0) fL MCHC (31.0-37.0) g/dL Monocytes # (Manual) (0-1.0) k/uL ABG pH (7.35-7.45) ABG pCO2 (35-45) mmHg ABG pO2 (83-108) mmHg ABG O2 Saturation (94-97) % VBG pH (7.31-7.41) VBG pCO2 (37-51) mmHg VBG HCO3 (24-28) mmol/L Sodium (137-145) mmol/L Potassium (3.5-5.1) mmol/L Chloride (98-107) mmol/L Carbon Dioxide (22-30) mmol/L BUN (7-17) mg/dL Creatinine (0.52-1.04) mg/dL Glucose (74-99) mg/dL POC Glucose (mg/dL) >600 H (75-99) mg/dL Magnesium (1.6-2.3) mg/dL AST (14-36) U/L ALT (4-34) U/L Creatine Kinase (30-135) U/L Coronavirus (PCR) (Not Detectd)
[2021-04-12 12:04] LABS: Ketones,Urine 3+ (Negative)
[2021-04-12 13:04] LABS: Glucose,Whole Blood 469 mg/dL (75-99)
[2021-04-12 14:02] LABS: Glucose,Whole Blood 371 mg/dL (75-99)
--- NOTE | 2021-04-12 14:23 | P.CNPUL ---
History of Present Illness Consult date: 04/12/21 Requesting physician: Eren Zafar Reason for consult: dyspnea Chief complaint: Sore throat, diarrhea, vomiting, COVID-19, DKA History of present illness: 66-year-old white female patient with history of insulin-dependent diabetes mellitus, hypertension, hyperlipidemia, GERD/reflux, nonsmoker, who presented to the emergency department on 04/12/2021 for evaluation of shortness of breath, sore throat. Patient reports symptoms for the last 8 days. She reports nausea vomiting and diarrhea. No cough, no chest discomfort. She tested positive for COVID-19 in the emergency department. She had been vaccinated with Moderna vaccine earlier this year. She denies any known COVID positive family members. Her oral intake has been decreased, she has also not been taking her insulin as directed. Does not normally check her sugars. No previous history of diabetic ketoacidosis. She has been on and off febrile. No headaches, no visual changes, no abdominal pain. Chest x-ray shows low lung volumes with accentuated interstitial markings, some minimal bibasilar atelectasis at the left lower lobe greater than right. No pneumothorax or pleural effusion. Lab work revealed significantly elevated glucose of greater than 600, and capillary glucose of 714, serum acetone was positive, CO2 was less than 5, potassium was 6.6, chloride was 92, venous blood gas revealed pH of 6.92, pCO2 of 21, and bicarbonate of 4, consistent with severe metabolic acidosis related to acute diabetic ketoacidosis. White count was 10.2, hemoglobin was 15.2. Urinalysis showed 1+ protein, 4+ glucose, 3+ ketones, but no definite sign of infection. Patient is not requiring any oxygen, room air pulse ox is 100%, patient was started on insulin infusion and hydration per DKA protocol. She was also given an amp of sodium bicarbonate and is being started on D5W with 3 A of bicarbonate at a rate of 100 ML per hour. Is lethargic, but does wake up and provide some answers to verbal questioning Review of Systems All systems: negative Constitutional: Reports fatigue, Reports fever, Reports malaise, Reports weakness, Denies chills Eyes: denies blurred vision, denies pain Ears, nose, mouth and throat: Reports sore throat, Denies headache Cardiovascular: Denies chest pain, Denies shortness of breath Respiratory: Reports dyspnea, Denies cough Gastrointestinal: Denies abdominal pain, Denies diarrhea, Denies nausea, Denies vomiting Genitourinary: Denies dysuria, Denies hematuria Musculoskeletal: Denies myalgias Integumentary: Denies pruritus, Denies rash Neurological: Denies numbness, Denies weakness Psychiatric: Denies anxiety, Denies depression Endocrine: Reports high blood sugars, Denies fatigue, Denies weight change Past Medical History Past Medical History: Diabetes Mellitus, Eye Disorder, GERD/Reflux, Hyperlipidem ia, Hypertension, Sleep Apnea/CPAP/BIPAP History of Any Multi-Drug Resistant Organisms: None Reported Past Surgical History: Cholecystectomy, Hysterectomy, Orthopedic Surgery Additional Past Surgical History / Comment(s): cervical fusion, laser eye surg(macular edema), left knee scope, ganglion cyst r wrist, right carpal tu nnel, vericose veins Past Anesthesia/Blood Transfusion Reactions: No Reported Reaction Past Psychological History: No Psychological Hx Reported Smoking Status: Never smoker Past Alcohol Use History: None Reported Past Drug Use History: None Reported - Past Family History Mother Family Medical History: No Reported History Medications and Allergies Home Medications Medication Instructions Recorded Confirmed Type Insulin Aspart Protam & Aspart 85 unit SQ BID 07/08/16 04/12/21 History [NovoLOG MIX 70-30 Flexpen] Losartan [Cozaar] 25 mg PO DAILY 07/08/16 04/12/21 History Rosuvastatin Calcium [Crestor] 40 mg PO DAILY 07/08/16 04/12/21 History metFORMIN HCL [Glucophage] 1,000 mg PO BID 07/08/16 04/12/21 History Canagliflozin [Invokana] 300 mg PO DAILY 04/12/21 04/12/21 History Omeprazole 20 mg PO DAILY 04/12/21 04/12/21 History Pramipexole [Mirapex] 0.5 mg PO BID 04/12/21 04/12/21 History Allergies Allergy/AdvReac Type Severity Reaction Status Date / Time hydrocodone [From Lortab] Allergy Swelling Verified 04/12/21 10:11 naproxen [From Aleve] AdvReac TOLD BY Verified 04/12/21 10:11 DOCTOR NOT TO TAKE AFTER CHOLECYSTECTOMY Physical Exam Vitals: Vital Signs Temp Pulse Resp BP Pulse Ox 04/12/21 13:53 96 18 104/58 100 04/12/21 11:35 98 16 92/79 99 04/12/21 11:04 98 18 112/56 98 04/12/21 08:44 100.9 F H 62 24 97/51 97 Intake and Output 04/11/21 04/12/21 04/12/21 22:59 06:59 14:59 Other: Weight 98.883 kg GENERAL EXAM: Lethargic, but arouses to voice, 66-year-old white female resting on the gurney in the emergency department, on room air with a pulse ox of 100% comfortable in no apparent distress. HEAD: Normocephalic/atraumatic. EYES: Normal reaction of pupils, equal size. Conjunctiva pink, sclera white. NOSE: Clear with pink turbinates. THROAT: No erythema or exudates. NECK: No masses, no JVD, no thyroid enlargement, no adenopathy. CHEST: No chest wall deformity. Symmetrical expansion. LUNGS: Equal air entry with no crackles, wheeze, rhonchi or dullness. CVS: Regular rate and rhythm, normal S1 and S2, no gallops, no murmurs, no rubs ABDOMEN: Soft, nontender. No hepatosplenomegaly, normal bowel sounds, no guarding or rigidity. EXTREMITIES: No clubbing, no edema, no cyanosis, 2+ pulses and upper and lower extremities. MUSCULOSKELETAL: Muscle strength and tone normal. SPINE: No scoliosis or deformity SKIN: No rashes CENTRAL NERVOUS SYSTEM: Lethargic but arousable No focal deficits, tone is normal in all 4 extremities. Results - Laboratory Findings CBC and BMP: 04/12/21 09:13 04/12/21 09:13 ABG ABG pH 6.92 (7.35-7.45) L* 04/12/21 09:56 ABG pCO2 <15 mmHg (35-45) L* 04/12/21 09:56 ABG pO2 141 mmHg (83-108) H 04/12/21 09:56 ABG O2 Saturation 98.2 % (94-97) H 04/12/21 09:56 PT/INR, D-dimer PT 9.7 sec (9.0-12.0) 04/12/21 09:13 INR 0.9 (<1.2) 04/12/21 09:13 Abnormal lab findings: Abnormal Labs 04/12/21 04/12/21 04/12/21 09:06 09:13 09:13 Hct 52.1 H MCV 105.3 H MCHC 29.2 L Monocytes # (Manual) 1.33 H ABG pH ABG pCO2 ABG pO2 ABG O2 Saturation VBG pH VBG pCO2 VBG HCO3 Sodium Potassium Chloride Carbon Dioxide BUN Creatinine Glucose POC Glucose (mg/dL) >600 H Magnesium AST ALT Creatine Kinase Urine Appearance Cloudy H Urine Protein 1+ H Urine Glucose (UA) 4+ H Urine Ketones 3+ H Urine Blood Moderate H Hyaline Casts 5 H Urine Mucus Rare H Coronavirus (PCR) 04/12/21 04/12/21 04/12/21 09:13 09:13 09:13 Hct MCV MCHC Monocytes # (Manual) ABG pH ABG pCO2 ABG pO2 ABG O2 Saturation VBG pH 6.92 L* VBG pCO2 21 L VBG HCO3 4 L* Sodium 130 L Potassium 6.6 H* Chloride 92 L Carbon Dioxide <5 L* BUN 54 H Creatinine 3.47 H Glucose 714 H* POC Glucose (mg/dL) Magnesium 2.8 H AST 69 H ALT 48 H Creatine Kinase 184 H Urine Appearance Urine Protein Urine Glucose (UA) Urine Ketones Urine Blood Hyaline Casts Urine Mucus Coronavirus (PCR) Detected A 04/12/21 04/12/21 04/12/21 09:56 11:00 12:57 Hct MCV MCHC Monocytes # (Manual) ABG pH 6.92 L* ABG pCO2 <15 L* ABG pO2 141 H ABG O2 Saturation 98.2 H VBG pH VBG pCO2 VBG HCO3 Sodium Potassium Chloride Carbon Dioxide BUN Creatinine Glucose POC Glucose (mg/dL) >600 H 469 H Magnesium AST ALT Creatine Kinase Urine Appearance Urine Protein Urine Glucose (UA) Urine Ketones Urine Blood Hyaline Casts Urine Mucus Coronavirus (PCR) - Diagnostic Findings Chest x-ray: report reviewed, image reviewed Assessment and Plan Plan: #1. Acute diabetic ketoacidosis related to acute COVID-19 infection #2. Acute COVID-19 infection characterized primarily by GI symptoms, no hypoxia or significant pneumonia on the chest x-ray. Patient was previously vaccinated by Moderna vaccine earlier this year #3. Severe metabolic acidosis related to acute DKA #4. Acute kidney injury related to ATN, and severe dehydration #5. Nausea vomiting and diarrhea, related to acute COVID-19 infection and DKA #6. Diabetes mellitus, patient is on a combination of NovoLog 70/30, Invokana and metformin on a regular basis #7. Hypertension #8. Hyperlipidemia #9. Obstructive sleep apnea #10. Never smoker Plan: Continue insulin infusion per DKA protocol Continue IV fluid hydration Repeat BMP in 4 hours No need for steroids or Remdesivir at this time Patient is outside the window for Remdesivir She is not on any oxygen, no need for steroids at this time We'll obtain a d-dimer, inflammatory markers tomorrow Nothing by mouth for now until she can tolerate oral intake Continue close monitoring in the ICU I performed a history & physical examination of the patient and discussed their management with my nurse practitioner, Ayah Tamez. I reviewed the nurse practitioner's note and agree with the documented findings and plan of care. Lung sounds are positive for clear breath sounds throughout the lung biswas. The findings and the impression was discussed with the patient. I attest to the documentation by the nurse practitioner. Time with Patient: Greater than 30
[2021-04-12 14:51] LABS: Glucose,Whole Blood 315 mg/dL (75-99)
[2021-04-12] MEDS ORDERED: Magnesium Replacement Protocol 1 EACH MISC MISCELLANE PRN (15:32)
[2021-04-12] MEDS ORDERED: Potassium Replacement Protocol 1 EACH MISC MISCELLANE PRN (15:32)
[2021-04-12] MEDS ORDERED: SODIUM CHLORIDE 0.9% 1,000 ML IV SCH (15:45)
[2021-04-12 15:57] LABS: Glucose,Whole Blood 234 mg/dL (75-99)
[2021-04-12] MEDS: INSULIN REGULAR 100 UNIT in SODIUM CHLORIDE 0.9% 100 ML IV SCH (16:11)
[2021-04-12] MEDS: D5-0.45% NACL WITH KCL 20MEQ/L 1,000 ML IV SCH ×2 (16:34→16:38)
[2021-04-12 17:07] LABS: Glucose,Whole Blood 211 mg/dL (75-99)
[2021-04-12 17:09] LABS: Calcium 9.1 mg/dL (8.4-10.2); Phosphorus 3.8 mg/dL (2.5-4.5)
[2021-04-12 17:12] LABS: Potassium 5.3 mmol/L (3.5-5.1)
[2021-04-12 18:00] LABS: Glucose,Whole Blood 169 mg/dL (75-99)
[2021-04-12 18:12] LABS: Hemoglobin A1C 12.9 % (4.0-6.0)
[2021-04-12 19:05] LABS: Glucose,Whole Blood 164 mg/dL (75-99)
[2021-04-12 20:03] LABS: Glucose,Whole Blood 169 mg/dL (75-99)
[2021-04-12 21:36] LABS: Glucose,Whole Blood 125 mg/dL (75-99)
[2021-04-12 22:23] LABS: Phosphorus 2.2 mg/dL (2.5-4.5); Potassium 4.6 mmol/L (3.5-5.1)
[2021-04-12 22:36] LABS: Glucose,Whole Blood 149 mg/dL (75-99)
[2021-04-12 23:21] LABS: Glucose,Whole Blood 132 mg/dL (75-99)
[2021-04-13 00:02] LABS: Glucose,Whole Blood 146 mg/dL (75-99)
[2021-04-13 01:07] LABS: Glucose,Whole Blood 164 mg/dL (75-99)
[2021-04-13 02:06] LABS: Glucose,Whole Blood 187 mg/dL (75-99)
[2021-04-13 03:30] LABS: Glucose,Whole Blood 152 mg/dL (75-99)
[2021-04-13 04:34] LABS: Glucose,Whole Blood 172 mg/dL (75-99)
[2021-04-13 04:45] LABS: Albumin 3.6 g/dL (3.5-5.0); C Reactive Protein 4.9 mg/dL (<1.0); Calcium 9.3 mg/dL (8.4-10.2); HCT 44.9 % (34.0-46.0); HGB 14.7 gm/dL (11.4-16.0); MCH 30.1 pg (25.0-35.0); MCHC 32.7 g/dL (31.0-37.0); Mean Platelet Volume 7.3; Platelet Count 222 k/uL (150-450); Potassium 4.1 mmol/L (3.5-5.1); RBC 4.87 m/uL (3.80-5.40); RDW 13.8 % (11.5-15.5); Total Bilirubin 0.4 mg/dL (0.2-1.3); Total Protein 6.6 g/dL (6.3-8.2); WBC 7.5 k/uL (3.8-10.6)
[2021-04-13] MEDS: INSULIN REGULAR 100 UNIT in SODIUM CHLORIDE 0.9% 100 ML IV SCH ×2 (05:00→14:48)
[2021-04-13 05:15] LABS: MCV 92.2 fL (80.0-100.0)
[2021-04-13 05:25] LABS: Glucose,Whole Blood 174 mg/dL (75-99)
[2021-04-13 06:23] LABS: Glucose,Whole Blood 183 mg/dL (75-99)
[2021-04-13 06:43] LABS: Band Neutrophils % 19 %; Metamyelocytes # (M) 0.08 k/uL (0); Metamyelocytes % 1 %; Monocytes # (M) 0.23 k/uL (0-1.0); Neutrophils % (M) 62 %; Nucleated Red Blood Cells 0 /100 WBC (0-0); Total Cells Counted 200
[2021-04-13] MEDS: D5-0.45% NACL WITH KCL 20MEQ/L 1,000 ML IV SCH (06:45)
[2021-04-13 06:46] LABS: Anisocytosis (M) Present
[2021-04-13 06:47] LABS: Poikilocytosis (M) Present
[2021-04-13 07:08] LABS: Glucose,Whole Blood 186 mg/dL (75-99)
[2021-04-13 08:24] LABS: Glucose,Whole Blood 206 mg/dL (75-99)
[2021-04-13] MEDS: PANTOPRAZOLE 40 MG/10 ML VIAL IV SCH (09:00)
--- NOTE | 2021-04-13 09:00 | XR ---
EXAMINATION TYPE: XR chest 1V portable DATE OF EXAM: 04/13/2021 Comparison: 04/12/2021 Clinical History: 66-year-old female COVID Findings: Heart normal size. Aorta and pulmonary vasculature within normal limits. Interstitial prominence. Per ipheral left basilar and retrocardiac opacity appears new. ACDF hardware partially seen. Impression: New left basilar airspace disease/pneumonia.
[2021-04-13 09:26] LABS: Glucose,Whole Blood 204 mg/dL (75-99)
[2021-04-13 10:20] LABS: Glucose,Whole Blood 216 mg/dL (75-99)
[2021-04-13] MEDS ORDERED: DEXTROSE 5% IN WATER 1,000 ML with SODIUM BICARB (1 MEQ/ML) 150 ML IV SCH (11:00)
[2021-04-13 11:09] LABS: Glucose,Whole Blood 211 mg/dL (75-99)
--- NOTE | 2021-04-13 11:15 | CONS ---
CONSULTATION Patient is seen for renal failure and metabolic acidosis. HISTORY OF PRESENT ILLNESS: The patient is a 66-year-old female who has a history of type 2 diabetes maintained on insulin along with Invokana and metformin. The patient came into the hospital with complaints of increased weakness, fever, chills, nausea and vomiting. She also had a sore throat. She tested positive for COVID-19, however, she has had Moderna vaccination in September of this. The patient did complete the two doses. Serum creatinine on admission was 3.47. The patient is maintained on IV fluids. Her creatinine now is down to 1.01. She has had good urine output. CO2 on admission was less than 5 now it is up to 13. The patient's blood sugar was elevated at more than 600. Serum acetone was positive. She has been maintained on DKA protocol. Her gap is now at 15, initially it was significantly elevated and more than 25. Blood sugar is now down to about 183. No previous history of kidney diseases. Metformin is on hold. PAST MEDICAL HISTORY: Significant for type 2 diabetes, gastroesophageal reflux disease, hyperlipidemia, hypertension, obstructive sleep apnea, osteoarthritis, carpal tunnel syndrome. PAST SURGICAL HISTORY: Cholecystectomy, hysterectomy, left knee arthroscopy, surgery for gout, surgery for right ganglion cyst and for right carpal tunnel syndrome. SOCIAL HISTORY: Negative for smoking, drug abuse or alcohol abuse. MEDICATIONS: Medications prior to admission included insulin, Cozaar, Crestor, Glucophage, Invokana, omeprazole, Mirapex. ALLERGIES: Include NAPROSYN. I believe this is more like an intolerance. The patient was told not to take that and then Lortab causes swelling. REVIEW OF SYSTEMS: As per HPI. Other systems negative. EXAMINATION: Patient is comfortable. She is not acutely short of breath, not in acute distress. Alert, oriented x3 but lethargic. Blood pressure was 131/71, heart rate 99 per minute. She is currently afebrile. She did have a temperature of 100.9 on initial admission. Heart and lungs are not examined due to positive COVID-19 PCR. Abdomen is soft, nontender. Exam of lower extremities shows no evidence of edema. [employer] exam grossly intact. LAB: Show sodium 140, potassium 4.1, chloride 112, CO2 is 13, BUN 30, creatinine 1.01, hemoglobin 14.7 g/dL. UA shows 3+ ketones, 1+ protein, WBCs 2. Serum acetone was positive. Chest x-ray shows left basilar airspace disease/pneumonia. ASSESSMENT: 1. Acute kidney injury prerenal currently improved significantly with IV hydration. Continue with IV fluids. 2. Severe metabolic acidosis anion gap associated with DKA, possible element of acidosis from metformin related lactic acidosis. Lactic acid level was however not elevated. It was at 1.1. Gap is almost closed and acidosis has improved. Patient did get IV bicarb initially. Currently she is maintained on D5 0.45. I will add IV bicarb as she is still lethargic. 3. Hyperkalemia associated with acute kidney injury, severe metabolic acidosis and hyperglycemia, currently improved. 4. Positive COVID-19 PCR in a patient with previous vaccination. Currently not on any treatment, being followed by Pulmonary. 5. Type 2 diabetes, maintained on Invokana, metformin and insulin prior to admission. PLAN: Add IV bicarb. Repeat labs this afternoon and then again in a.m. Encourage increased oral intake. Can decrease IV fluids. Thank you for this consultation. Will continue to follow the patient with you during her hospitalization. MMODL / IJN: [id number] /
--- NOTE | 2021-04-13 11:34 | P.PN ---
Subjective Progress Note Date: 04/13/21 Principal diagnosis: acute respiratory failure, DKA, acute COVID-19 pneumonitis, HISTORY OF PRESENT ILLNESS 66-year-old female one of Dr. Chau's patient with past medical history of 2 diabetes on insulin mix 85 units twice a day along with Invokana and metforminwas her blood sugar has been quite bit elevated lately. Patient was vaccinated against the COVID-19 earlier in 2019 developed to be sick for the last 10 days has not been able to take her insulin or oral hypoglycemic agent for the last week. Patient presented to the emergency department todaywith severe gastrointestinal symptom with fever chills nausea vomiting and diarrhea along with sore throat her sickness episode started over 10 days ago, patient has not been able to eat or drink lately she was seen at the emergency department was in DKA with positive acetone with blood sugar over 700 at the time. Patient was running fever and chills, also found to be in acute kidney failure with creatinine of 3.47 with GFR of 13 and potassium of 6.6. Patient was started on IV hydration, Flanagan catheter was in place, started on IV insulin drip she will be admitted to the ICU will be seen pulmonary and nephrology. her COVID-19 was positivechest x-ray showed low lung volume with interstitial marking minimal bibasilar subsegmental atelectasis left lower lobe greater than the right with left lower lobe infiltrate no pneumothorax or pleural effusion. 04/13: Patient blood sugar is down to the 200 but she still have positive acetone and still very acidotic this point with bicarbonate quite bit low. Her bicarbonate will be stopped today significant improvement in kidney function co mpared to yesterday. Still found left sided infiltrate on a chest x-ray was start patient on Zosyn. Patient fever or chills nausea and GI symptoms are much better. She was taking off Decadron apparently she does not meet any criteria for antiviral management at this point. REVIEW OF SYSTEMS Constitutional: positive fever or chills with mild respiratory failure patient is more delirious at the time. EENT: No headache. No blurred vision or double vision, no loss of vision. No loss of Hearing, no ringing in the ears, no dizziness. No nasal drainage or congestion. No epistaxis. No sore throat. Lungs: slight shortness of breath with cough and wheezes. Cardiovascular: No chest pain, no lower extremity edema. No palpitations. No paroxysmal nocturnal dyspnea. No orthopnea. No lightheadedness or dizziness. No syncopal episodes. Abdominal: positive abdominal discomfort with nausea vomiting diarrhea no constipation no bloody or tarry stool significant lack of appetite and intake. Genitourinary: decrease urine output with no urinary retention decrease f requency and urgency. Musculoskeletal: No myalgias. No muscle weakness, no gait dysfunction, no yadiel quent falls. No back pain. No neck pain. Integumentary: No wounds, no lesions. No rash or pruritus. No unusual bruising. No change in hair or nails. Neurologic: No aphasia. No facial droop. No change in mentation. No head injury. No headache. No paralysis. No paresthesia. Psychiatric: No depression. No anxiety. No mood swings. Endocrine: No abnormal blood sugars. No weight change. No excessive sweating or thirst. No cold intolerance. PHYSICAL EXAMINATION Gen: This is 66-year-old look very sick in mild respiratory distress and very delirious at the time of examination she is not able to stay awake for the whole time require higher flow oxygen to keep pulse ox above 90 percentile. HEENT: Head is atraumatic, normocephalic. Pupils equal, round. Sclerae is anicteric, dry mucosa. NECK: Supple. No JVD. No lymphadenopathy. No thyromegaly. LUNGS: decreased breath sound bilaterally specially the left lower lobe compared to the right with mild rhonchi crackles and wheezes. HEART: Regular rate and rhythm. No murmur. ABDOMEN: Soft. Bowel sounds are present. No masses. No tenderness. EXTREMITIES: No pedal edema. No calf tenderness. NEUROLOGICAL: Patient is awake with mild confusion, alert current confuse. Cranial nerves 2 through 12 are grossly intact. moving her 4 extremity with generalized weakness. ASSESSMENT AND PLAN 1. acute respiratory failure: Combination of DKA along with covert pneumonitis, patient be admitted to the ICU, continue oxygen, continue updraft, she is off steroid continue insulin drip until her anion gap is a close that she will be on longer acting insulin twice a day beside frequent sliding scales coverage. 2. DKA: Doing slightly bit better her anion gap still problem at this point patient still benefit from insulin drip to be closer anion gap been she'll be on longer acting insulin twice a day along with short acting before meals meals plus sliding scales. 3. acute COVID-19 pneumonitis: Patient be admitted to the hospital will continue supportive care for COVID-19 she will be started on antiviral medication along with steroid zinc vitamin D, infectious disease will be consulted as well. 4. acute kidney failure: Mostly was ATN and much better so far on hydration and current management her creatinine is down to 1.01 with GFR is 58 continue hydration. 5. type 2 diabetes was on insulin: Patient was on high dose of 70/30 at 85 units twice a day beside metformin and invokana, hold off on oral medication for now will continue insulin drip and convert patient asked to insulin short on long acting by tomorrow. 6. hypertension: Was on losartan would hold off medication at least 24 hours and resume with the kidney function improving. 7. hyperlipidemia: Was start patient back on the Crestor 40 mg a day. 8. GI prophylaxis: Patient will be on omeprazole 20 mg a day 9. DVT prophylaxis: Was start patient on Lovenox 40 mg subcutaneous daily. CODE STATUS: Full code. Objective - Vital Signs Vital signs: Vital Signs Temp 98.3 F 04/13/21 08:00 Pulse 99 04/13/21 09:00 Resp 16 04/13/21 09:00 BP 131/71 04/13/21 09:00 Pulse Ox 95 04/13/21 09:00 Intake & Output 04/12/21 04/13/21 04/13/21 18:59 06:59 18:59 Intake Total 872.293 2957.137 450 Output Total 1575 2835 1050 Balance -1052.107 -957.863 -600 Weight 98.883 kg 102 kg Intake: IV 200 150 Dextrose 5% in Water 1, 200 150 000 ml @ 100 mls/hr IV . [id number] [facility] with Sodium Bicarb (1 Meq/ml) 150 ml Rx#:[id number] Intake, IV Titration 084.254 1834.137 300 Amount D5-0.45% NaCl with KCl 300 1800 300 20Meq/l 1,000 ml @ 150 mls/hr IV .Q6H40M [facility] Rx# :[id number] Insulin Regular 100 unit 77.137 In Sodium Chloride 0.9% 100 ml @ 0.1 UNITS/KG/HR 9.987 mls/hr IV .Q10H7M [facility] Rx#:[id number] Insulin Regular 100 unit 22.893 In Sodium Chloride 0.9% 100 ml @ Per Protocol IV .Q0M [facility] Rx#:[id number] Output: Urine 1575 2835 1050 Other: Voiding Method Indwelling Catheter Indwelling Catheter Indwelling Catheter - Labs CBC & Chem 7: 04/13/21 03:57 04/13/21 03:57 Labs: Abnormal Lab Results - Last 24 Hours (Table) 04/12/21 04/12/21 04/12/21 Range/Units 09:13 09:13 12:57 Metamyelocytes # (Man) (0) k/uL D-Dimer (<0.60) mg/L FEU Potassium (3.5-5.1) mmol/L Chloride (98-107) mmol/L Carbon Dioxide (22-30) mmol/L BUN (7-17) mg/dL Creatinine (0.52-1.04) mg/dL Glucose (74-99) mg/dL POC Glucose (mg/dL) 469 H (75-99) mg/dL Hemoglobin A1c 12.9 H (4.0-6.0) % Phosphorus (2.5-4.5) mg/dL AST (14-36) U/L ALT (4-34) U/L Lactate Dehydrogenase (313-618) U/L C-Reactive Protein (<1.0) mg/dL Urine Appearance Cloudy H (Clear) Urine Protein 1+ H (Negative) Urine Glucose (UA) 4+ H (Negative) Urine Ketones 3+ H (Negative) Urine Blood Moderate H (Negative) Hyaline Casts 5 H (0-2) /lpf Urine Mucus Rare H (None) /hpf 04/12/21 04/12/21 04/12/21 Range/Units 14:00 14:49 15:55 Metamyelocytes # (Man) (0) k/uL D-Dimer (<0.60) mg/L FEU Potassium (3.5-5.1) mmol/L Chloride (98-107) mmol/L Carbon Dioxide (22-30) mmol/L BUN (7-17) mg/dL Creatinine (0.52-1.04) mg/dL Glucose (74-99) mg/dL POC Glucose (mg/dL) 371 H 315 H 234 H (75-99) mg/dL Hemoglobin A1c (4.0-6.0) % Phosphorus (2.5-4.5) mg/dL AST (14-36) U/L ALT (4-34) U/L Lactate Dehydrogenase (313-618) U/L C-Reactive Protein (<1.0) mg/dL Urine Appearance (Clear) Urine Protein (Negative) Urine Glucose (UA) (Negative) Urine Ketones (Negative) Urine Blood (Negative) Hyaline Casts (0-2) /lpf Urine Mucus (None) /hpf 04/12/21 04/12/21 04/12/21 Range/Units 16:37 17:05 17:59 Metamyelocytes # (Man) (0) k/uL D-Dimer (<0.60) mg/L FEU Potassium 5.3 H (3.5-5.1) mmol/L Chloride (98-107) mmol/L Carbon Dioxide 7 L* (22-30) mmol/L BUN 53 H (7-17) mg/dL Creatinine 1.96 H (0.52-1.04) mg/dL Glucose 244 H (74-99) mg/dL POC Glucose (mg/dL) 211 H 169 H (75-99) mg/dL Hemoglobin A1c (4.0-6.0) % Phosphorus (2.5-4.5) mg/dL AST (14-36) U/L ALT (4-34) U/L Lactate Dehydrogenase (313-618) U/L C-Reactive Protein (<1.0) mg/dL Urine Appearance (Clear) Urine Protein (Negative) Urine Glucose (UA) (Negative) Urine Ketones (Negative) Urine Blood (Negative) Hyaline Casts (0-2) /lpf Urine Mucus (None) /hpf 04/12/21 04/12/21 04/12/21 Range/Units 19:04 20:01 21:35 Metamyelocytes # (Man) (0) k/uL D-Dimer (<0.60) mg/L FEU Potassium (3.5-5.1) mmol/L Chloride (98-107) mmol/L Carbon Dioxide (22-30) mmol/L BUN (7-17) mg/dL Creatinine (0.52-1.04) mg/dL Glucose (74-99) mg/dL POC Glucose (mg/dL) 164 H 169 H 125 H (75-99) mg/dL Hemoglobin A1c (4.0-6.0) % Phosphorus (2.5-4.5) mg/dL AST (14-36) U/L ALT (4-34) U/L Lactate Dehydrogenase (313-618) U/L C-Reactive Protein (<1.0) mg/dL Urine Appearance (Clear) Urine Protein (Negative) Urine Glucose (UA) (Negative) Urine Ketones (Negative) Urine Blood (Negative) Hyaline Casts (0-2) /lpf Urine Mucus (None) /hpf 04/12/21 04/12/21 04/12/21 Range/Units 22:02 22:24 23:19 Metamyelocytes # (Man) (0) k/uL D-Dimer (<0.60) mg/L FEU Potassium (3.5-5.1) mmol/L Chloride 112 H (98-107) mmol/L Carbon Dioxide 11 L (22-30) mmol/L BUN 41 H (7-17) mg/dL Creatinine 1.29 H (0.52-1.04) mg/dL Glucose 145 H (74-99) mg/dL POC Glucose (mg/dL) 149 H 132 H (75-99) mg/dL Hemoglobin A1c (4.0-6.0) % Phosphorus 2.2 L (2.5-4.5) mg/dL AST (14-36) U/L ALT (4-34) U/L Lactate Dehydrogenase (313-618) U/L C-Reactive Protein (<1.0) mg/dL Urine Appearance (Clear) Urine Protein (Negative) Urine Glucose (UA) (Negative) Urine Ketones (Negative) Urine Blood (Negative) Hyaline Casts (0-2) /lpf Urine Mucus (None) /hpf 04/13/21 04/13/21 04/13/21 Range/Units 00:01 01:05 02:04 Metamyelocytes # (Man) (0) k/uL D-Dimer (<0.60) mg/L FEU Potassium (3.5-5.1) mmol/L Chloride (98-107) mmol/L Carbon Dioxide (22-30) mmol/L BUN (7-17) mg/dL Creatinine (0.52-1.04) mg/dL Glucose (74-99) mg/dL POC Glucose (mg/dL) 146 H 164 H 187 H (75-99) mg/dL Hemoglobin A1c (4.0-6.0) % Phosphorus (2.5-4.5) mg/dL AST (14-36) U/L ALT (4-34) U/L Lactate Dehydrogenase (313-618) U/L C-Reactive Protein (<1.0) mg/dL Urine Appearance (Clear) Urine Protein (Negative) Urine Glucose (UA) (Negative) Urine Ketones (Negative) Urine Blood (Negative) Hyaline Casts (0-2) /lpf Urine Mucus (None) /hpf 04/13/21 04/13/21 04/13/21 Range/Units 03:27 03:57 03:57 Metamyelocytes # (Man) 0.08 H (0) k/uL D-Dimer (<0.60) mg/L FEU Potassium (3.5-5.1) mmol/L Chloride 112 H (98-107) mmol/L Carbon Dioxide 13 L (22-30) mmol/L BUN 30 H (7-17) mg/dL Creatinine (0.52-1.04) mg/dL Glucose 174 H (74-99) mg/dL POC Glucose (mg/dL) 152 H (75-99) mg/dL Hemoglobin A1c (4.0-6.0) % Phosphorus (2.5-4.5) mg/dL AST 61 H (14-36) U/L ALT 55 H (4-34) U/L Lactate Dehydrogenase 625 H (313-618) U/L C-Reactive Protein 4.9 H (<1.0) mg/dL Urine Appearance (Clear) Urine Protein (Negative) Urine Glucose (UA) (Negative) Urine Ketones (Negative) Urine Blood (Negative) Hyaline Casts (0-2) /lpf Urine Mucus (None) /hpf 04/13/21 04/13/21 04/13/21 Range/Units 03:57 04:22 05:22 Metamyelocytes # (Man) (0) k/uL D-Dimer 1.12 H (<0.60) mg/L FEU Potassium (3.5-5.1) mmol/L Chloride (98-107) mmol/L Carbon Dioxide (22-30) mmol/L BUN (7-17) mg/dL Creatinine (0.52-1.04) mg/dL Glucose (74-99) mg/dL POC Glucose (mg/dL) 172 H 174 H (75-99) mg/dL Hemoglobin A1c (4.0-6.0) % Phosphorus (2.5-4.5) mg/dL AST (14-36) U/L ALT (4-34) U/L Lactate Dehydrogenase (313-618) U/L C-Reactive Protein (<1.0) mg/dL Urine Appearance (Clear) Urine Protein (Negative) Urine Glucose (UA) (Negative) Urine Ketones (Negative) Urine Blood (Negative) Hyaline Casts (0-2) /lpf Urine Mucus (None) /hpf 04/13/21 04/13/21 04/13/21 Range/Units 06:11 07:07 08:22 Metamyelocytes # (Man) (0) k/uL D-Dimer (<0.60) mg/L FEU Potassium (3.5-5.1) mmol/L Chloride (98-107) mmol/L Carbon Dioxide (22-30) mmol/L BUN (7-17) mg/dL Creatinine (0.52-1.04) mg/dL Glucose (74-99) mg/dL POC Glucose (mg/dL) 183 H 186 H 206 H (75-99) mg/dL Hemoglobin A1c (4.0-6.0) % Phosphorus (2.5-4.5) mg/dL AST (14-36) U/L ALT (4-34) U/L Lactate Dehydrogenase (313-618) U/L C-Reactive Protein (<1.0) mg/dL Urine Appearance (Clear) Urine Protein (Negative) Urine Glucose (UA) (Negative) Urine Ketones (Negative) Urine Blood (Negative) Hyaline Casts (0-2) /lpf Urine Mucus (None) /hpf 04/13/21 04/13/21 04/13/21 Range/Units 09:10 10:19 11:08 Metamyelocytes # (Man) (0) k/uL D-Dimer (<0.60) mg/L FEU Potassium (3.5-5.1) mmol/L Chloride (98-107) mmol/L Carbon Dioxide (22-30) mmol/L BUN (7-17) mg/dL Creatinine (0.52-1.04) mg/dL Glucose (74-99) mg/dL POC Glucose (mg/dL) 204 H 216 H 211 H (75-99) mg/dL Hemoglobin A1c (4.0-6.0) % Phosphorus (2.5-4.5) mg/dL AST (14-36) U/L ALT (4-34) U/L Lactate Dehydrogenase (313-618) U/L C-Reactive Protein (<1.0) mg/dL Urine Appearance (Clear) Urine Protein (Negative) Urine Glucose (UA) (Negative) Urine Ketones (Negative) Urine Blood (Negative) Hyaline Casts (0-2) /lpf Urine Mucus (None) /hpf
[2021-04-13 12:07] LABS: Glucose,Whole Blood 211 mg/dL (75-99)
[2021-04-13 13:13] LABS: Glucose,Whole Blood 226 mg/dL (75-99)
[2021-04-13] MEDS: PIPERACILLIN-TAZOBACTAM 3.375 GM in SODIUM CHLORIDE 0.9% 100 ML IVPB SCH ×2 (13:19→19:35)
--- NOTE | 2021-04-13 13:40 | P.PN ---
Subjective Progress Note Date: 04/13/21 Principal diagnosis: Acute diabetic ketoacidosis and acute COVID-19 infection 66-year-old white female patient with history of insulin-dependent diabetes mellitus, hypertension, hyperlipidemia, GERD/reflux, nonsmoker, who presented to the emergency department on 04/12/2021 for evaluation of shortness of breath, sore throat. Patient reports symptoms for the last 8 days. She reports nausea vomiting and diarrhea. No cough, no chest discomfort. She tested positive for COVID-19 in the emergency department. She had been vaccinated with Moderna vaccine earlier this year. She denies any known COVID positive family members. Her oral intake has been decreased, she has also not been taking her insulin as directed. Does not normally check her sugars. No previous history of diabetic ketoacidosis. She has been on and off febrile. No headaches, no visual changes, no abdominal pain. Chest x-ray shows low lung volumes with accentuated interstitial markings, some minimal bibasilar atelectasis at the left lower lobe greater than right. No pneumothorax or pleural effusion. Lab work revealed significantly elevated glucose of greater than 600, and capillary glucose of 7 14, serum acetone was positive, CO2 was less than 5, potassium was 6.6, chloride was 92, venous blood gas revealed pH of 6.92, pCO2 of 21, and bicarbonate of 4, consistent with severe metabolic acidosis related to acute diabetic ketoacidosis. White count was 10.2, hemoglobin was 15.2. Urinalysis showed 1+ protein, 4+ glucose, 3+ ketones, but no definite sign of infection. Patient is not requiring any oxygen, room air pulse ox is 100%, patient was started on insulin infusion and hydration per DKA protocol. She was also given an amp of sodium bicarbonate and is being started on D5W with 3 A of bicarbonate at a rate of 100 ML per hour. Is lethargic, but does wake up and provide some answers to verbal questioning Reevaluated today on 04/13/2021, patient remains in the ICU, remains on the DKA protocol, her numbers are improving significantly. However her anion gap remains not closed continues to have relatively low bicarb, I have discontinued her bicarb drip as ordered by nephrology. On her initial admission there was a minimal infiltrate in the left lower lobe, and she was placed empirically on Zosyn. Patient remains on antibiotics, she is on the COVID-19 cocktail, but she is not requiring Decadron because she did not meet the criteria, patient did not require any oxygen on admission. CBC today is relatively unremarkable. Her PTT is 1.12. Anion gap is 15. Her bicarb is 13. Renal profile is dramatically improved, BUN is 30 creatinine is 1.01. LDH is 625. C-reactive protein is 4.9. Patient is feeling better, however she continues to be a bit lethargic. Objective - Vital Signs Vital signs: Vital Signs Temp 98.5 F 04/13/21 13:00 Pulse 109 H 04/13/21 13:00 Resp 18 04/13/21 13:00 BP 111/67 04/13/21 13:00 Pulse Ox 91 L 04/13/21 13:00 Intake & Output 04/12/21 04/13/21 04/13/21 18:59 06:59 18:59 Intake Total 840.720 2510.137 1050 Output Total 1575 2835 1725 Balance -1052.107 -957.863 -675 Weight 98.883 kg 102 kg Intake: IV 200 750 Dextrose 5% in Water 1, 200 750 000 ml @ 100 mls/hr IV . [id number] [facility] with Sodium Bicarb (1 Meq/ml) 150 ml Rx#:[id number] Intake, IV Titration 784.942 5059.137 300 Amount D5-0.45% NaCl with KCl 300 1800 300 20Meq/l 1,000 ml @ 150 mls/hr IV .Q6H40M [facility] Rx# :[id number] Insulin Regular 100 unit 77.137 In Sodium Chloride 0.9% 100 ml @ 0.1 UNITS/KG/HR 9.987 mls/hr IV .Q10H7M [facility] Rx#:[id number] Insulin Regular 100 unit 22.893 In Sodium Chloride 0.9% 100 ml @ Per Protocol IV .Q0M [facility] Rx#:[id number] Output: Urine 1575 2835 1725 Other: Voiding Method Indwelling Catheter Indwelling Catheter Indwelling Catheter - Exam Gen: This is 66-year-old sleepy, however not in respiratory distress HEENT: Head is atraumatic, normocephalic. PERRLA, EOMI, nonicteric. NECK: Supple. No JVD. No lymphadenopathy. No thyromegaly. LUNGS: Minimal fine crackles at the left base, no rhonchi no wheezes. HEART: Normal S1 and S2, no S3 gallop. ABDOMEN: Obese soft nontender no megaly no rebound. EXTREMITIES: No clubbing edema or cyanosis. NEUROLOGICAL: Lethargic, sleepy, tends to sleep easily, no gross focal deficit otherwise - Labs CBC & Chem 7: 04/13/21 03:57 04/13/21 03:57 Labs: Abnormal Lab Results - Last 24 Hours (Table) 04/12/21 04/12/21 04/12/21 Range/Units 09:13 14:00 14:49 Metamyelocytes # (Man) (0) k/uL D-Dimer (<0.60) mg/L FEU Potassium (3.5-5.1) mmol/L Chloride (98-107) mmol/L Carbon Dioxide (22-30) mmol/L BUN (7-17) mg/dL Creatinine (0.52-1.04) mg/dL Glucose (74-99) mg/dL POC Glucose (mg/dL) 371 H 315 H (75-99) mg/dL Hemoglobin A1c 12.9 H (4.0-6.0) % Phosphorus (2.5-4.5) mg/dL AST (14-36) U/L ALT (4-34) U/L Lactate Dehydrogenase (313-618) U/L C-Reactive Protein (<1.0) mg/dL 04/12/21 04/12/21 04/12/21 Range/Units 15:55 16:37 17:05 Metamyelocytes # (Man) (0) k/uL D-Dimer (<0.60) mg/L FEU Potassium 5.3 H (3.5-5.1) mmol/L Chloride (98-107) mmol/L Carbon Dioxide 7 L* (22-30) mmol/L BUN 53 H (7-17) mg/dL Creatinine 1.96 H (0.52-1.04) mg/dL Glucose 244 H (74-99) mg/dL POC Glucose (mg/dL) 234 H 211 H (75-99) mg/dL Hemoglobin A1c (4.0-6.0) % Phosphorus (2.5-4.5) mg/dL AST (14-36) U/L ALT (4-34) U/L Lactate Dehydrogenase (313-618) U/L C-Reactive Protein (<1.0) mg/dL 04/12/21 04/12/21 04/12/21 Range/Units 17:59 19:04 20:01 Metamyelocytes # (Man) (0) k/uL D-Dimer (<0.60) mg/L FEU Potassium (3.5-5.1) mmol/L Chloride (98-107) mmol/L Carbon Dioxide (22-30) mmol/L BUN (7-17) mg/dL Creatinine (0.52-1.04) mg/dL Glucose (74-99) mg/dL POC Glucose (mg/dL) 169 H 164 H 169 H (75-99) mg/dL Hemoglobin A1c (4.0-6.0) % Phosphorus (2.5-4.5) mg/dL AST (14-36) U/L ALT (4-34) U/L Lactate Dehydrogenase (313-618) U/L C-Reactive Protein (<1.0) mg/dL 04/12/21 04/12/21 04/12/21 Range/Units 21:35 22:02 22:24 Metamyelocytes # (Man) (0) k/uL D-Dimer (<0.60) mg/L FEU Potassium (3.5-5.1) mmol/L Chloride 112 H (98-107) mmol/L Carbon Dioxide 11 L (22-30) mmol/L BUN 41 H (7-17) mg/dL Creatinine 1.29 H (0.52-1.04) mg/dL Glucose 145 H (74-99) mg/dL POC Glucose (mg/dL) 125 H 149 H (75-99) mg/dL Hemoglobin A1c (4.0-6.0) % Phosphorus 2.2 L (2.5-4.5) mg/dL AST (14-36) U/L ALT (4-34) U/L Lactate Dehydrogenase (313-618) U/L C-Reactive Protein (<1.0) mg/dL 04/12/21 04/13/21 04/13/21 Range/Units 23:19 00:01 01:05 Metamyelocytes # (Man) (0) k/uL D-Dimer (<0.60) mg/L FEU Potassium (3.5-5.1) mmol/L Chloride (98-107) mmol/L Carbon Dioxide (22-30) mmol/L BUN (7-17) mg/dL Creatinine (0.52-1.04) mg/dL Glucose (74-99) mg/dL POC Glucose (mg/dL) 132 H 146 H 164 H (75-99) mg/dL Hemoglobin A1c (4.0-6.0) % Phosphorus (2.5-4.5) mg/dL AST (14-36) U/L ALT (4-34) U/L Lactate Dehydrogenase (313-618) U/L C-Reactive Protein (<1.0) mg/dL 04/13/21 04/13/21 04/13/21 Range/Units 02:04 03:27 03:57 Metamyelocytes # (Man) 0.08 H (0) k/uL D-Dimer (<0.60) mg/L FEU Potassium (3.5-5.1) mmol/L Chloride (98-107) mmol/L Carbon Dioxide (22-30) mmol/L BUN (7-17) mg/dL Creatinine (0.52-1.04) mg/dL Glucose (74-99) mg/dL POC Glucose (mg/dL) 187 H 152 H (75-99) mg/dL Hemoglobin A1c (4.0-6.0) % Phosphorus (2.5-4.5) mg/dL AST (14-36) U/L ALT (4-34) U/L Lactate Dehydrogenase (313-618) U/L C-Reactive Protein (<1.0) mg/dL 04/13/21 04/13/21 04/13/21 Range/Units 03:57 03:57 04:22 Metamyelocytes # (Man) (0) k/uL D-Dimer 1.12 H (<0.60) mg/L FEU Potassium (3.5-5.1) mmol/L Chloride 112 H (98-107) mmol/L Carbon Dioxide 13 L (22-30) mmol/L BUN 30 H (7-17) mg/dL Creatinine (0.52-1.04) mg/dL Glucose 174 H (74-99) mg/dL POC Glucose (mg/dL) 172 H (75-99) mg/dL Hemoglobin A1c (4.0-6.0) % Phosphorus (2.5-4.5) mg/dL AST 61 H (14-36) U/L ALT 55 H (4-34) U/L Lactate Dehydrogenase 625 H (313-618) U/L C-Reactive Protein 4.9 H (<1.0) mg/dL 04/13/21 04/13/21 04/13/21 Range/Units 05:22 06:11 07:07 Metamyelocytes # (Man) (0) k/uL D-Dimer (<0.60) mg/L FEU Potassium (3.5-5.1) mmol/L Chloride (98-107) mmol/L Carbon Dioxide (22-30) mmol/L BUN (7-17) mg/dL Creatinine (0.52-1.04) mg/dL Glucose (74-99) mg/dL POC Glucose (mg/dL) 174 H 183 H 186 H (75-99) mg/dL Hemoglobin A1c (4.0-6.0) % Phosphorus (2.5-4.5) mg/dL AST (14-36) U/L ALT (4-34) U/L Lactate Dehydrogenase (313-618) U/L C-Reactive Protein (<1.0) mg/dL 04/13/21 04/13/21 04/13/21 Range/Units 08:22 09:10 10:19 Metamyelocytes # (Man) (0) k/uL D-Dimer (<0.60) mg/L FEU Potassium (3.5-5.1) mmol/L Chloride (98-107) mmol/L Carbon Dioxide (22-30) mmol/L BUN (7-17) mg/dL Creatinine (0.52-1.04) mg/dL Glucose (74-99) mg/dL POC Glucose (mg/dL) 206 H 204 H 216 H (75-99) mg/dL Hemoglobin A1c (4.0-6.0) % Phosphorus (2.5-4.5) mg/dL AST (14-36) U/L ALT (4-34) U/L Lactate Dehydrogenase (313-618) U/L C-Reactive Protein (<1.0) mg/dL 04/13/21 04/13/21 04/13/21 Range/Units 11:08 12:06 13:11 Metamyelocytes # (Man) (0) k/uL D-Dimer (<0.60) mg/L FEU Potassium (3.5-5.1) mmol/L Chloride (98-107) mmol/L Carbon Dioxide (22-30) mmol/L BUN (7-17) mg/dL Creatinine (0.52-1.04) mg/dL Glucose (74-99) mg/dL POC Glucose (mg/dL) 211 H 211 H 226 H (75-99) mg/dL Hemoglobin A1c (4.0-6.0) % Phosphorus (2.5-4.5) mg/dL AST (14-36) U/L ALT (4-34) U/L Lactate Dehydrogenase (313-618) U/L C-Reactive Protein (<1.0) mg/dL Assessment and Plan Assessment: Plan: #1. Acute diabetic ketoacidosis related to acute COVID-19 infection #2. Acute COVID-19 infection characterized primarily by GI symptoms, no hypoxia or significant pneumonia on the chest x-ray. Patient was previously vaccinated by Moderna vaccine earlier this year #3. Severe metabolic acidosis related to acute DKA #4. Acute kidney injury related to ATN, and severe dehydration #5. Nausea vomiting and diarrhea, related to acute COVID-19 infection and DKA #6. Diabetes mellitus, patient is on a combination of NovoLog 70/30, Invokana and metformin on a regular basis #7. Hypertension #8. Hyperlipidemia #9. Obstructive sleep apnea #10. Never smoker #11 left lower lobe atelectasis/infiltrate, not typical of COVID-19 pneumonia, hence the patient was empirically placed on antibiotics. Recommendation: Continue DKA protocol. Continue insulin. Continue D5 4 5 at present, no need for bicarb drip anymore. Patient does not meet criteria for steroids and for REM Patient is out of the window for REM Continue Zosyn empirically. Continue to monitor inflammatory markers and d-dimer. We'll continue to monitor in the ICU for today. Time with Patient: Less than 30
[2021-04-13 14:08] LABS: Glucose,Whole Blood 207 mg/dL (75-99)
[2021-04-13] MEDS ORDERED: ONDANSETRON 4 MG/2 ML VIAL IVP PRN (14:24)
[2021-04-13] MEDS: DEXTROSE 5%-0.45% NACL 1,000 ML IV SCH ×2 (14:39→19:34)
[2021-04-13 15:19] LABS: Glucose,Whole Blood 211 mg/dL (75-99)
[2021-04-13 16:41] LABS: Glucose,Whole Blood 230 mg/dL (75-99)
[2021-04-13 17:07] LABS: Glucose,Whole Blood 219 mg/dL (75-99)
[2021-04-13 17:21] LABS: African American GFR (CKD) >90 (>60 ml/min/1.73 sqM); Anion Gap 12 mmol/L; Blood Urea Nitrogen 15 mg/dL (7-17); Calcium 8.8 mg/dL (8.4-10.2); Carbon Dioxide 16 mmol/L (22-30); Chloride 110 mmol/L (98-107); Glucose 254 mg/dL (74-99); Non-African American GFR(CKD) >90 (>60 ml/min/1.73 sqM); Potassium 3.7 mmol/L (3.5-5.1); Sodium 138 mmol/L (137-145)
[2021-04-13] MEDS ORDERED: POTASSIUM CHLORIDE ER 20 MEQ TAB.ER PO SCH (18:00)
[2021-04-13 18:15] LABS: Glucose,Whole Blood 233 mg/dL (75-99)
[2021-04-13 18:52] LABS: Glucose,Whole Blood 259 mg/dL (75-99)
[2021-04-13 20:00] LABS: Glucose,Whole Blood 234 mg/dL (75-99)
[2021-04-13] MEDS: INSULIN DETEMIR (LEVEMIR) 100 UNIT/ML SYR SQ SCH (20:57)
[2021-04-13 21:01] LABS: Glucose,Whole Blood 220 mg/dL (75-99)
[2021-04-13 22:03] LABS: Glucose,Whole Blood 208 mg/dL (75-99)
[2021-04-13 22:49] LABS: Glucose,Whole Blood 215 mg/dL (75-99)
[2021-04-13 23:27] LABS: African American GFR (CKD) >90 (>60 ml/min/1.73 sqM); Anion Gap 12 mmol/L; Blood Urea Nitrogen 11 mg/dL (7-17); Calcium 9.5 mg/dL (8.4-10.2); Carbon Dioxide 14 mmol/L (22-30); Chloride 112 mmol/L (98-107); Glucose 236 mg/dL (74-99); Non-African American GFR(CKD) >90 (>60 ml/min/1.73 sqM); Potassium 4.8 mmol/L (3.5-5.1); Sodium 138 mmol/L (137-145)
[2021-04-14 00:14] LABS: Glucose,Whole Blood 198 mg/dL (75-99)
[2021-04-14 01:15] LABS: Glucose,Whole Blood 205 mg/dL (75-99)
[2021-04-14 02:09] LABS: Glucose,Whole Blood 220 mg/dL (75-99)
[2021-04-14 03:13] LABS: Glucose,Whole Blood 213 mg/dL (75-99)
[2021-04-14] MEDS: DEXTROSE 5%-0.45% NACL 1,000 ML IV SCH ×2 (04:18→06:55)
[2021-04-14] MEDS: PIPERACILLIN-TAZOBACTAM 3.375 GM in SODIUM CHLORIDE 0.9% 100 ML IVPB SCH ×3 (04:18→20:34)
[2021-04-14] MEDS: INSULIN REGULAR 100 UNIT in SODIUM CHLORIDE 0.9% 100 ML IV SCH ×2 (04:20→17:45)
[2021-04-14 04:57] LABS: HCT 42.4 % (34.0-46.0); HGB 13.9 gm/dL (11.4-16.0); MCH 29.6 pg (25.0-35.0); MCHC 32.9 g/dL (31.0-37.0); MCV 89.9 fL (80.0-100.0); Platelet Count 194 k/uL (150-450); RBC 4.71 m/uL (3.80-5.40); RDW 13.9 % (11.5-15.5); WBC 6.6 k/uL (3.8-10.6)
[2021-04-14 05:08] LABS: Glucose,Whole Blood 203 mg/dL (75-99)
[2021-04-14 05:15] LABS: Sodium 139 mmol/L (137-145)
[2021-04-14 05:16] LABS: ALT 41 U/L (4-34); AST 36 U/L (14-36); African American GFR (CKD) >90 (>60 ml/min/1.73 sqM); Albumin 3.3 g/dL (3.5-5.0); Alkaline Phosphatase 104 U/L (38-126); Anion Gap 12 mmol/L; Blood Urea Nitrogen 9 mg/dL (7-17); Calcium 9.2 mg/dL (8.4-10.2); Carbon Dioxide 19 mmol/L (22-30); Chloride 108 mmol/L (98-107); Glucose 224 mg/dL (74-99); Non-African American GFR(CKD) >90 (>60 ml/min/1.73 sqM); Potassium 3.3 mmol/L (3.5-5.1); Total Bilirubin 0.6 mg/dL (0.2-1.3); Total Protein 6.2 g/dL (6.3-8.2)
[2021-04-14] MEDS: POTASSIUM CHLORIDE ER 20 MEQ TAB.ER PO SCH ×2 (05:44→06:54)
[2021-04-14 06:03] LABS: Glucose,Whole Blood 214 mg/dL (75-99)
[2021-04-14] MEDS: INSULIN DETEMIR (LEVEMIR) 100 UNIT/ML SYR SQ SCH ×2 (06:54→20:34)
[2021-04-14 06:55] LABS: Glucose,Whole Blood 222 mg/dL (75-99)
[2021-04-14 08:14] LABS: Glucose,Whole Blood 194 mg/dL (75-99)
--- NOTE | 2021-04-14 08:18 | XR ---
EXAMINATION TYPE: XR chest 1V portable DATE OF EXAM: 04/14/2021 Comparison: 04/13/2021 Clinical History: 66-year-old female ICU follow-up, assess lungs Findings: Leftward patient rotation alters the normal cardiomediastinal contours. Heart appears normal size. So me minimal patchy opacity remains at the left base, improved from prior exam. Impression: Improving aeration at the left base with minimal residual density.
[2021-04-14] MEDS ORDERED: ACETAMINOPHEN TAB 325 MG TAB PO STA (08:41)
[2021-04-14 09:12] LABS: Glucose,Whole Blood 177 mg/dL (75-99)
[2021-04-14] MEDS: LOSARTAN 25 MG TAB PO SCH (09:47)
[2021-04-14] MEDS: PANTOPRAZOLE 40 MG/10 ML VIAL IV SCH (09:48)
[2021-04-14 10:43] VITALS: BMI 38.4
--- NOTE | 2021-04-14 10:58 | P.PN ---
Subjective Progress Note Date: 04/14/21 Principal diagnosis: DKA, and COVID infection. Acute diabetic ketoacidosis and acute COVID-19 infection 66-year-old white female patient with history of insulin-dependent diabetes mellitus, hypertension, hyperlipidemia, GERD/reflux, nonsmoker, who presented to the emergency department on 04/12/2021 for evaluation of shortness of breath, sore throat. Patient reports symptoms for the last 8 days. She reports nausea vomiting and diarrhea. No cough, no chest discomfort. She tested positive for COVID-19 in the emergency department. She had been vaccinated with Moderna vacc ine earlier this year. She denies any known COVID positive family members. Her oral intake has been decreased, she has also not been taking her insulin as directed. Does not normally check her sugars. No previous history of diabetic ketoacidosis. She has been on and off febrile. No headaches, no visual changes, no abdominal pain. Chest x-ray shows low lung volumes with accentuated interstitial markings, some minimal bibasilar atelectasis at the left lower lobe greater than right. No pneumothorax or pleural effusion. Lab work revealed significantly elevated glucose of greater than 600, and capillary glucose of 714, serum acetone was positive, CO2 was less than 5, potassium was 6.6, c hloride was 92, venous blood gas revealed pH of 6.92, pCO2 of 21, and bicarbonate of 4, consistent with severe metabolic acidosis related to acute diabetic ketoacidosis. White count was 10.2, hemoglobin was 15.2. Urinalysis showed 1+ protein, 4+ glucose, 3+ ketones, but no definite sign of infection. Patient is not requiring any oxygen, room air pulse ox is 100%, patient was started on insulin infusion and hydration per DKA protocol. She was also given an amp of sodium bicarbonate and is being started on D5W with 3 A of bicarbonate at a rate of 100 ML per hour. Is lethargic, but does wake up and provide some answers to verbal questioning Reevaluated today on 04/13/2021, patient remains in the ICU, remains on the DKA protocol, her numbers are improving significantly. However her anion gap remains not closed continues to have relatively low bicarb, I have discontinued her bicarb drip as ordered by nephrology. On her initial admission there was a minimal infiltrate in the left lower lobe, and she was placed empirically on Zosyn. Patient remains on antibiotics, she is on the COVID-19 cocktail, but she is not requiring Decadron because she did not meet the criteria, patient did not require any oxygen on admission. CBC today is relatively unremarkable. Her PTT is 1.12. Anion gap is 15. Her bicarb is 13. Renal profile is dramatically improved, BUN is 30 creatinine is 1.01. LDH is 625. C-reactive protein is 4.9. Patient is feeling better, however she continues to be a bit lethargic. Progress note dated 04/14/2021. The patient is again seen in the intensive care unit, room 267. The patient was admitted to the hospital on April 12, and transferred to the intensive care unit on the . The patient was admitted with diagnosis of having coronavirus infection, without coronavirus pneumonia, and diabetic ketoacidosis. Currently, the patient's on room air. She's getting D5.45 at 150 mL an hour, and an insulin drip at 3.5 units an hour. She is on Zosyn. The patient can likely be transitioned off the insulin drip. We will also order a pro-calcitonin level. Current labs include a white count 6.6, hemoglobin 13.9, hematocrit 42.4, and a platelet count 194,000. Sodium is 139, potassium 3.3, chlorides 108, CO2 19, anion gap is 12, BUN 9, creatinine 0.52. The last blood sugar was 177. Chest x-ray my opinion is normal. There are no focal infiltrates. Objective - Vital Signs Vital signs: Vital Signs Temp 98.2 F 04/14/21 08:00 Pulse 86 04/14/21 10:00 Resp 17 04/14/21 10:00 BP 148/73 04/14/21 10:00 Pulse Ox 94 L 04/14/21 10:00 Intake & Output 04/13/21 04/14/21 04/14/21 18:59 06:59 18:59 Intake Total 2384.667 1983.133 318.783 Output Total 2675 2125 450 Balance -290.333 -141.867 -131.217 Weight 101.469 kg 101.469 kg Intake: IV 750 1500 300 D5-0.45% NaCl with KCl 1500 300 20Meq/l 1,000 ml @ 150 mls/hr IV .Q6H40M [facility] Rx# :[id number] Dextrose 5% in Water 1, 750 000 ml @ 100 mls/hr IV . [id number] [facility] with Sodium Bicarb (1 Meq/ml) 150 ml Rx#:[id number] Intake, IV Titration 1634.667 483.133 18.783 Amount D5-0.45% NaCl with KCl 300 20Meq/l 1,000 ml @ 150 mls/hr IV .Q6H40M [facility] Rx# :[id number] Dextrose 5%-0.45% NaCl 1, 1200 450 000 ml @ 150 mls/hr IV . Q6H40M [facility] Rx#:[id number] Insulin Regular 100 unit 34.667 33.133 18.783 In Sodium Chloride 0.9% 100 ml @ 0.1 UNITS/KG/HR 9.987 mls/hr IV .Q10H7M [facility] Rx#:[id number] Piperacillin-Tazobactam 3 100 .375 gm In Sodium Chloride 0.9% 100 ml @ 25 mls/hr IVPB Q8H [facility] Rx#: [id number] Output: Urine 2675 2125 450 Other: Voiding Method Indwelling Catheter Indwelling Catheter Indwelling Catheter - Exam No acute distress, oriented 3. Currently on room air, without respiratory distress. HEENT examination is grossly unremarkable. Neck supple. Full range of motion. No adenopathy thyromegaly or neck vein distention. Cardiovascular examination reveals regular rhythm rate. S1-S2 normal. No S3 or S4. No discernible murmur noted. Heart rate is 86 bpm. Lungs reveal clear breath sounds. Breath sounds are equal bilaterally. No adventitious lung sounds including wheezes rhonchi or crackles. On room air, saturations are 94%. Abdomen soft bowel sounds are heard. No masses or tenderness. Extremities are intact. No cyanosis clubbing or edema. Skin is without rash or lesion. Neurologic examination is brief but nonfocal. - Labs CBC & Chem 7: 04/14/21 04:41 04/14/21 04:41 Labs: Abnormal Lab Results - Last 24 Hours (Table) 04/13/21 04/13/21 04/13/21 Range/Units 11:08 12:06 13:11 Potassium (3.5-5.1) mmol/L Chloride (98-107) mmol/L Carbon Dioxide (22-30) mmol/L Glucose (74-99) mg/dL POC Glucose (mg/dL) 211 H 211 H 226 H (75-99) mg/dL ALT (4-34) U/L Total Protein (6.3-8.2) g/dL Albumin (3.5-5.0) g/dL 04/13/21 04/13/21 04/13/21 Range/Units 14:07 15:17 16:00 Potassium (3.5-5.1) mmol/L Chloride 110 H (98-107) mmol/L Carbon Dioxide 16 L (22-30) mmol/L Glucose 254 H (74-99) mg/dL POC Glucose (mg/dL) 207 H 211 H (75-99) mg/dL ALT (4-34) U/L Total Protein (6.3-8.2) g/dL Albumin (3.5-5.0) g/dL 04/13/21 04/13/21 04/13/21 Range/Units 16:38 17:05 18:14 Potassium (3.5-5.1) mmol/L Chloride (98-107) mmol/L Carbon Dioxide (22-30) mmol/L Glucose (74-99) mg/dL POC Glucose (mg/dL) 230 H 219 H 233 H (75-99) mg/dL ALT (4-34) U/L Total Protein (6.3-8.2) g/dL Albumin (3.5-5.0) g/dL 04/13/21 04/13/21 04/13/21 Range/Units 18:50 19:59 20:59 Potassium (3.5-5.1) mmol/L Chloride (98-107) mmol/L Carbon Dioxide (22-30) mmol/L Glucose (74-99) mg/dL POC Glucose (mg/dL) 259 H 234 H 220 H (75-99) mg/dL ALT (4-34) U/L Total Protein (6.3-8.2) g/dL Albumin (3.5-5.0) g/dL 04/13/21 04/13/21 04/13/21 Range/Units 22:01 22:46 22:48 Potassium (3.5-5.1) mmol/L Chloride 112 H (98-107) mmol/L Carbon Dioxide 14 L (22-30) mmol/L Glucose 236 H (74-99) mg/dL POC Glucose (mg/dL) 208 H 215 H (75-99) mg/dL ALT (4-34) U/L Total Protein (6.3-8.2) g/dL Albumin (3.5-5.0) g/dL 04/14/21 04/14/21 04/14/21 Range/Units 00:13 01:13 02:08 Potassium (3.5-5.1) mmol/L Chloride (98-107) mmol/L Carbon Dioxide (22-30) mmol/L Glucose (74-99) mg/dL POC Glucose (mg/dL) 198 H 205 H 220 H (75-99) mg/dL ALT (4-34) U/L Total Protein (6.3-8.2) g/dL Albumin (3.5-5.0) g/dL 04/14/21 04/14/21 04/14/21 Range/Units 03:12 04:41 05:07 Potassium 3.3 L (3.5-5.1) mmol/L Chloride 108 H (98-107) mmol/L Carbon Dioxide 19 L (22-30) mmol/L Glucose 224 H (74-99) mg/dL POC Glucose (mg/dL) 213 H 203 H (75-99) mg/dL ALT 41 H (4-34) U/L Total Protein 6.2 L (6.3-8.2) g/dL Albumin 3.3 L (3.5-5.0) g/dL 04/14/21 04/14/21 04/14/21 Range/Units 06:02 06:53 08:07 Potassium (3.5-5.1) mmol/L Chloride (98-107) mmol/L Carbon Dioxide (22-30) mmol/L Glucose (74-99) mg/dL POC Glucose (mg/dL) 214 H 222 H 194 H (75-99) mg/dL ALT (4-34) U/L Total Protein (6.3-8.2) g/dL Albumin (3.5-5.0) g/dL 04/14/21 Range/Units 09:10 Potassium (3.5-5.1) mmol/L Chloride (98-107) mmol/L Carbon Dioxide (22-30) mmol/L Glucose (74-99) mg/dL POC Glucose (mg/dL) 177 H (75-99) mg/dL ALT (4-34) U/L Total Protein (6.3-8.2) g/dL Albumin (3.5-5.0) g/dL Assessment and Plan Assessment: Acute diabetic ketoacidosis, possibly triggered by coronavirus infection. No clearcut evidence of coronavirus associated pneumonia. Severe metabolic acidosis, secondary to DKA. Acute kidney injury, secondary to ATN. History of diabetes mellitus. History of hypertension. She of hyperlipidemia. History of obstructive sleep apnea syndrome. History of lifelong nontobacco use. Plan: Plan dated 04/14/2021. The patient can be transitioned from an insulin drip, to subcutaneous insulin. The patient's blood sugar was less than 200, bicarbonate concentration greater than 18, and her anion gap was normal. Currently, the patient's doing reasonably well. She is not manifesting any signs or symptoms of pneumonia. We'll continue to follow. Once transitioned, the patient can be transferred out of the intensive care unit. Time with Patient: Less than 30
[2021-04-14] MEDS: LACTATED RINGERS 1,000 ML IV SCH (11:44)
[2021-04-14 12:01] LABS: Glucose,Whole Blood 192 mg/dL (75-99)
--- NOTE | 2021-04-14 12:10 | P.PN ---
Subjective Progress Note Date: 04/14/21 Principal diagnosis: acute respiratory failure, DKA, acute COVID-19 pneumonitis, intractable nausea vomiting. HISTORY OF PRESENT ILLNESS 66-year-old female one of Dr. Chau's patient with past medical history of 2 diabetes on insulin mix 85 units twice a day along with Invokana and metforminwas her blood sugar has been quite bit elevated lately. Patient was vaccinated against the COVID-19 earlier in 2019 developed to be sick for the last 10 days has not been able to take her insulin or oral hypoglycemic agent for the last week. Patient presented to the emergency department todaywith severe gastrointestinal symptom with fever chills nausea vomiting and diarrhea along with sore throat her sickness episode started over 10 days ago, patient graham s not been able to eat or drink lately she was seen at the emergency department was in DKA with positive acetone with blood sugar over 700 at the time. Patient was running fever and chills, also found to be in acute kidney failure with creatinine of 3.47 with GFR of 13 and potassium of 6.6. Patient was started on IV hydration, Flanagan catheter was in place, started on IV insulin drip she will be admitted to the ICU will be seen pulmonary and nephrology. her COVID-19 was positivechest x-ray showed low lung volume with interstitial marking minimal bibasilar subsegmental atelectasis left lower lobe greater than the right with left lower lobe infiltrate no pneumothorax or pleural effusion. 04/13: Patient blood sugar is down to the 200 but she still have positive acetone and still very acidotic this point with bicarbonate quite bit low. Her bicarbonate will be stopped today significant improvement in kidney function compared to yesterday. Still found left sided infiltrate on a chest x-ray was start patient on Zosyn. Patient fever or chills nausea and GI symptoms are much better. She was taking off Decadron apparently she does not meet any criteria for antiviral management at this point. 04/14: Patient is doing very well blood sugars below 200 patient had closed her anion gap at this point. Patient will be off insulin drip started on Levemir 15 units twice a day and NovoLog 10 units before meals meals plus sliding scales. Patient still does not require any management for COVID-19 she is improving significantly had no hypoxia this point. REVIEW OF SYSTEMS Constitutional: positive fever or chills with mild respiratory failure patient is more delirious at the time. EENT: No headache. No blurred vision or double vision, no loss of vision. No loss of Hearing, no ringing in the ears, no dizziness. No nasal drainage or congestion. No epistaxis. No sore throat. Lungs: slight shortness of breath with cough and wheezes. Cardiovascular: No chest pain, no lower extremity edema. No palpitations. No paroxysmal nocturnal dyspnea. No orthopnea. No lightheadedness or dizziness. No syncopal episodes. Abdominal: positive abdominal discomfort with nausea vomiting diarrhea no constipation no bloody or tarry stool significant lack of appetite and intake. Genitourinary: decrease urine output with no urinary retention decrease frequency and urgency. Musculoskeletal: No myalgias. No muscle weakness, no gait dysfunction, no frequent falls. No back pain. No neck pain. Integumentary: No wounds, no lesions. No rash or pruritus. No unusual bruising. No change in hair or nails. Neurologic: No aphasia. No facial droop. No change in mentation. No head injury. No headache. No paralysis. No paresthesia. Psychiatric: No depression. No anxiety. No mood swings. Endocrine: No abnormal blood sugars. No weight change. No excessive sweating or thirst. No cold intolerance. PHYSICAL EXAMINATION Gen: This is 66-year-old look very sick in mild respiratory distress and very delirious at the time of examination she is not able to stay awake for the whole time require higher flow oxygen to keep pulse ox above 90 percentile. HEENT: Head is atraumatic, normocephalic. Pupils equal, round. Sclerae is anicteric, dry mucosa. NECK: Supple. No JVD. No lymphadenopathy. No thyromegaly. LUNGS: decreased breath sound bilaterally specially the left lower lobe compared to the right with mild rhonchi crackles and wheezes. HEART: Regular rate and rhythm. No murmur. ABDOMEN: Soft. Bowel sounds are present. No masses. No tenderness. EXTREMITIES: No pedal edema. No calf tenderness. NEUROLOGICAL: Patient is awake with mild confusion, alert current confuse. Cranial nerves 2 through 12 are grossly intact. moving her 4 extremity with generalized weakness. ASSESSMENT AND PLAN 1. DKA: Doing much better she is off insulin drip continue long-acting insulin and short-acting insulin this point continue hydration titrate patient's diet and hopefully prepare for home in the next 24 hours. 2. acute respiratory failure: Combination of DKA along with covid pneumonitis, patient be admitted to the ICU, continue oxygen, continue updraft, she is off steroid continue insulin drip until her anion gap is a close that she will be on longer acting insulin twice a day beside frequent sliding scales coverage. 3. Right lower lobe infiltrate: Patient remain on antibiotic at this point with Zosyn which will be switched to oral antibiotic by tomorrow. His chest x-ray showed significant improvement on the base compared to before. 4. acute kidney injury: Mostly was ATN and much better so far on hydration her GFR is above 90. 5. type 2 diabetes was on insulin: Patient was on high dose of 70/30 at 85 units twice a day beside metformin and invokana, hold off on oral medication for now will continue insulin drip and convert patient asked to insulin short on long acting by tomorrow. 6. hypertension: Was started back on losartan 25 mg a day. 7. hyperlipidemia: Was start patient back on the Crestor 40 mg a day. 8. GI prophylaxis: Patient will be on omeprazole 20 mg a day 9. DVT prophylaxis: Was start patient on Lovenox 40 mg subcutaneous daily. CODE STATUS: Full code. Discharge planning: Possibly home tomorrow. Objective - Vital Signs Vital signs: Vital Signs Temp 98.2 F 04/14/21 08:00 Pulse 85 04/14/21 11:00 Resp 19 04/14/21 11:00 BP 136/75 04/14/21 11:00 Pulse Ox 92 L 04/14/21 11:00 Intake & Output 04/13/21 04/14/21 04/14/21 18:59 06:59 18:59 Intake Total 2384.667 1983.133 318.783 Output Total 2675 2125 450 Balance -290.333 -141.867 -131.217 Weight 101.469 kg 101.469 kg Intake: IV 750 1500 300 D5-0.45% NaCl with KCl 1500 300 20Meq/l 1,000 ml @ 150 mls/hr IV .Q6H40M [facility] Rx# :[id number] Dextrose 5% in Water 1, 750 000 ml @ 100 mls/hr IV . [id number] [facility] with Sodium Bicarb (1 Meq/ml) 150 ml Rx#:[id number] Intake, IV Titration 1634.667 483.133 18.783 Amount D5-0.45% NaCl with KCl 300 20Meq/l 1,000 ml @ 150 mls/hr IV .Q6H40M [facility] Rx# :[id number] Dextrose 5%-0.45% NaCl 1, 1200 450 000 ml @ 150 mls/hr IV . Q6H40M [facility] Rx#:[id number] Insulin Regular 100 unit 34.667 33.133 18.783 In Sodium Chloride 0.9% 100 ml @ 0.1 UNITS/KG/HR 9.987 mls/hr IV .Q10H7M [facility] Rx#:[id number] Piperacillin-Tazobactam 3 100 .375 gm In Sodium Chloride 0.9% 100 ml @ 25 mls/hr IVPB Q8H [facility] Rx#: [id number] Output: Urine 2675 2125 450 Other: Voiding Method Indwelling Catheter Indwelling Catheter Indwelling Catheter - Labs CBC & Chem 7: 04/14/21 04:41 04/14/21 04:41 Labs: Abnormal Lab Results - Last 24 Hours (Table) 04/13/21 04/13/21 04/13/21 Range/Units 12:06 13:11 14:07 Potassium (3.5-5.1) mmol/L Chloride (98-107) mmol/L Carbon Dioxide (22-30) mmol/L Glucose (74-99) mg/dL POC Glucose (mg/dL) 211 H 226 H 207 H (75-99) mg/dL ALT (4-34) U/L Total Protein (6.3-8.2) g/dL Albumin (3.5-5.0) g/dL 04/13/21 04/13/21 04/13/21 Range/Units 15:17 16:00 16:38 Potassium (3.5-5.1) mmol/L Chloride 110 H (98-107) mmol/L Carbon Dioxide 16 L (22-30) mmol/L Glucose 254 H (74-99) mg/dL POC Glucose (mg/dL) 211 H 230 H (75-99) mg/dL ALT (4-34) U/L Total Protein (6.3-8.2) g/dL Albumin (3.5-5.0) g/dL 04/13/21 04/13/21 04/13/21 Range/Units 17:05 18:14 18:50 Potassium (3.5-5.1) mmol/L Chloride (98-107) mmol/L Carbon Dioxide (22-30) mmol/L Glucose (74-99) mg/dL POC Glucose (mg/dL) 219 H 233 H 259 H (75-99) mg/dL ALT (4-34) U/L Total Protein (6.3-8.2) g/dL Albumin (3.5-5.0) g/dL 04/13/21 04/13/21 04/13/21 Range/Units 19:59 20:59 22:01 Potassium (3.5-5.1) mmol/L Chloride (98-107) mmol/L Carbon Dioxide (22-30) mmol/L Glucose (74-99) mg/dL POC Glucose (mg/dL) 234 H 220 H 208 H (75-99) mg/dL ALT (4-34) U/L Total Protein (6.3-8.2) g/dL Albumin (3.5-5.0) g/dL 04/13/21 04/13/21 04/14/21 Range/Units 22:46 22:48 00:13 Potassium (3.5-5.1) mmol/L Chloride 112 H (98-107) mmol/L Carbon Dioxide 14 L (22-30) mmol/L Glucose 236 H (74-99) mg/dL POC Glucose (mg/dL) 215 H 198 H (75-99) mg/dL ALT (4-34) U/L Total Protein (6.3-8.2) g/dL Albumin (3.5-5.0) g/dL 04/14/21 04/14/21 04/14/21 Range/Units 01:13 02:08 03:12 Potassium (3.5-5.1) mmol/L Chloride (98-107) mmol/L Carbon Dioxide (22-30) mmol/L Glucose (74-99) mg/dL POC Glucose (mg/dL) 205 H 220 H 213 H (75-99) mg/dL ALT (4-34) U/L Total Protein (6.3-8.2) g/dL Albumin (3.5-5.0) g/dL 04/14/21 04/14/21 04/14/21 Range/Units 04:41 05:07 06:02 Potassium 3.3 L (3.5-5.1) mmol/L Chloride 108 H (98-107) mmol/L Carbon Dioxide 19 L (22-30) mmol/L Glucose 224 H (74-99) mg/dL POC Glucose (mg/dL) 203 H 214 H (75-99) mg/dL ALT 41 H (4-34) U/L Total Protein 6.2 L (6.3-8.2) g/dL Albumin 3.3 L (3.5-5.0) g/dL 04/14/21 04/14/21 04/14/21 Range/Units 06:53 08:07 09:10 Potassium (3.5-5.1) mmol/L Chloride (98-107) mmol/L Carbon Dioxide (22-30) mmol/L Glucose (74-99) mg/dL POC Glucose (mg/dL) 222 H 194 H 177 H (75-99) mg/dL ALT (4-34) U/L Total Protein (6.3-8.2) g/dL Albumin (3.5-5.0) g/dL 04/14/21 Range/Units 12:00 Potassium (3.5-5.1) mmol/L Chloride (98-107) mmol/L Carbon Dioxide (22-30) mmol/L Glucose (74-99) mg/dL POC Glucose (mg/dL) 192 H (75-99) mg/dL ALT (4-34) U/L Total Protein (6.3-8.2) g/dL Albumin (3.5-5.0) g/dL
[2021-04-14] MEDS: INSULIN ASPART (NovoLOG) 100 UNIT/ML VIAL SQ SCH ×5 (12:12→20:44)
[2021-04-14 14:13] LABS: Glucose,Whole Blood 186 mg/dL (75-99)
--- NOTE | 2021-04-14 14:32 | PN ---
PROGRESS NOTE The patient is seen for followup for acute kidney injury and severe metabolic acidosis associated with DKA and acute kidney injury. Renal function has improved with creatinine down to 0.5. Patient has been maintained on IV fluids. The bicarb drip did not get started and patient was continued on D5 0.45. Her acidosis is improved. CO2 is 19. Overall, patient is improved. She is off the insulin drip and will be transferred out of the ICU. PHYSICAL EXAMINATION: On examination today, blood pressure was 136/75, heart rate 85 per minute. She is afebrile. The patient is not examined. Case is discussed with nursing staff. LAB: Show sodium 139, potassium 3.3, chloride 108, CO2 is 19, BUN 9, serum creatinine 0.52. ASSESSMENT: 1. Acute kidney injury associated with volume depletion, prerenal, currently improved. 2. Metabolic acidosis associated with DKA and acute kidney injury, significantly improved. May continue with IV fluids. 3. Hypokalemia associated with treatment of DKA. Decreased oral intake status post replacement. 4. DKA on insulin drip, currently discontinued. PLAN: Replace potassium. Change IV fluids to Ringer lactate. Repeat labs in a.m. MMODL / IJN: [id number] /
[2021-04-14 16:15] LABS: Ferritin 216.3 ng/mL (10.0-291.0)
[2021-04-14 17:41] LABS: Glucose,Whole Blood 118 mg/dL (75-99)
[2021-04-14] MEDS: metFORMIN 500 MG TAB PO SCH (17:50)
[2021-04-14] MEDS: PRAMIPEXOLE 0.5 MG TAB PO SCH (20:36)
[2021-04-14 20:40] LABS: Glucose,Whole Blood 113 mg/dL (75-99)
[2021-04-15] MEDS: LACTATED RINGERS 1,000 ML IV SCH (04:38)
[2021-04-15] MEDS: PIPERACILLIN-TAZOBACTAM 3.375 GM in SODIUM CHLORIDE 0.9% 100 ML IVPB SCH (04:38)
[2021-04-15 04:49] LABS: HCT 44.1 % (34.0-46.0); HGB 14.5 gm/dL (11.4-16.0); MCH 30.2 pg (25.0-35.0); MCHC 32.9 g/dL (31.0-37.0); MCV 91.7 fL (80.0-100.0); Mean Platelet Volume 7.3; Platelet Count 161 k/uL (150-450); RBC 4.81 m/uL (3.80-5.40); RDW 13.3 % (11.5-15.5)
[2021-04-15 05:05] LABS: ALT 34 U/L (4-34); AST 32 U/L (14-36); African American GFR (CKD) >90 (>60 ml/min/1.73 sqM); Albumin 3.3 g/dL (3.5-5.0); Alkaline Phosphatase 98 U/L (38-126); Anion Gap 11 mmol/L; Blood Urea Nitrogen 9 mg/dL (7-17); Calcium 9.6 mg/dL (8.4-10.2); Carbon Dioxide 22 mmol/L (22-30); Chloride 105 mmol/L (98-107); Glucose 88 mg/dL (74-99); Non-African American GFR(CKD) >90 (>60 ml/min/1.73 sqM); Potassium 3.1 mmol/L (3.5-5.1); Sodium 138 mmol/L (137-145); Total Bilirubin 0.7 mg/dL (0.2-1.3); Total Protein 6.2 g/dL (6.3-8.2)
[2021-04-15 05:15] VITALS: RESP 20
[2021-04-15] MEDS: metFORMIN 500 MG TAB PO SCH (06:33)
[2021-04-15] MEDS: INSULIN DETEMIR (LEVEMIR) 100 UNIT/ML SYR SQ SCH (06:33)
[2021-04-15] MEDS: INSULIN ASPART (NovoLOG) 100 UNIT/ML VIAL SQ SCH ×4 (06:34→11:58)
[2021-04-15 06:35] LABS: Glucose,Whole Blood 96 mg/dL (75-99)
[2021-04-15] MEDS: POTASSIUM CHLORIDE ER 20 MEQ TAB.ER PO SCH ×2 (07:03→08:52)
[2021-04-15] MEDS ORDERED: PANTOPRAZOLE 40 MG TABLET PO SCH (07:30)
[2021-04-15 08:05] LABS: Glucose,Whole Blood 131 mg/dL (75-99)
[2021-04-15] MEDS: LOSARTAN 25 MG TAB PO SCH (08:52)
[2021-04-15] MEDS: PANTOPRAZOLE 40 MG/10 ML VIAL IV SCH (08:52)
[2021-04-15] MEDS: PRAMIPEXOLE 0.5 MG TAB PO SCH (08:53)
[2021-04-15] MEDS ORDERED: ATORVASTATIN 80 MG TAB PO SCH (09:00)
[2021-04-15 09:18] VITALS: BP 132/61; PULSE 83; TEMP 98
--- NOTE | 2021-04-15 09:57 | P.PN ---
Subjective Progress Note Date: 04/15/21 Principal diagnosis: DKA, and COVID infection. Acute diabetic ketoacidosis and acute COVID-19 infection 66-year-old white female patient with history of insulin-dependent diabetes mellitus, hypertension, hyperlipidemia, GERD/reflux, nonsmoker, who presented to the emergency department on 04/12/2021 for evaluation of shortness of breath, sore throat. Patient reports symptoms for the last 8 days. She reports nausea vomiting and diarrhea. No cough, no chest discomfort. She tested positive for COVID-19 in the emergency department. She had been vaccinated with Moderna vacc ine earlier this year. She denies any known COVID positive family members. Her oral intake has been decreased, she has also not been taking her insulin as directed. Does not normally check her sugars. No previous history of diabetic ketoacidosis. She has been on and off febrile. No headaches, no visual changes, no abdominal pain. Chest x-ray shows low lung volumes with accentuated interstitial markings, some minimal bibasilar atelectasis at the left lower lobe greater than right. No pneumothorax or pleural effusion. Lab work revealed significantly elevated glucose of greater than 600, and capillary glucose of 714, serum acetone was positive, CO2 was less than 5, potassium was 6.6, c hloride was 92, venous blood gas revealed pH of 6.92, pCO2 of 21, and bicarbonate of 4, consistent with severe metabolic acidosis related to acute diabetic ketoacidosis. White count was 10.2, hemoglobin was 15.2. Urinalysis showed 1+ protein, 4+ glucose, 3+ ketones, but no definite sign of infection. Patient is not requiring any oxygen, room air pulse ox is 100%, patient was started on insulin infusion and hydration per DKA protocol. She was also given an amp of sodium bicarbonate and is being started on D5W with 3 A of bicarbonate at a rate of 100 ML per hour. Is lethargic, but does wake up and provide some answers to verbal questioning Reevaluated today on 04/13/2021, patient remains in the ICU, remains on the DKA protocol, her numbers are improving significantly. However her anion gap remains not closed continues to have relatively low bicarb, I have discontinued her bicarb drip as ordered by nephrology. On her initial admission there was a minimal infiltrate in the left lower lobe, and she was placed empirically on Zosyn. Patient remains on antibiotics, she is on the COVID-19 cocktail, but she is not requiring Decadron because she did not meet the criteria, patient did not require any oxygen on admission. CBC today is relatively unremarkable. Her PTT is 1.12. Anion gap is 15. Her bicarb is 13. Renal profile is dramatically improved, BUN is 30 creatinine is 1.01. LDH is 625. C-reactive protein is 4.9. Patient is feeling better, however she continues to be a bit lethargic. Progress note dated 04/14/2021. The patient is again seen in the intensive care unit, room 267. The patient was admitted to the hospital on April 12, and transferred to the intensive care unit on the . The patient was admitted with diagnosis of having coronavirus infection, without coronavirus pneumonia, and diabetic ketoacidosis. Currently, the patient's on room air. She's getting D5.45 at 150 mL an hour, and an insulin drip at 3.5 units an hour. She is on Zosyn. The patient can likely be transitioned off the insulin drip. We will also order a pro-calcitonin level. Current labs include a white count 6.6, hemoglobin 13.9, hematocrit 42.4, and a platelet count 194,000. Sodium is 139, potassium 3.3, chlorides 108, CO2 19, anion gap is 12, BUN 9, creatinine 0.52. The last blood sugar was 177. Chest x-ray my opinion is normal. There are no focal infiltrates. Progress note dated 04/15/2021. 66-year-old female seen in the intensive care unit, room 267. Currently, the patient is very stable. She's on room air. She's getting lactated Ringer's at 70 mL an hour, and is on IV Zosyn. The patient's pro-calcitonin level is normal. The Zosyn will be discontinued. The patient's last sugar, anion gap, and bicarbonate concentration, are all excellent, and the patient could be transferred to the general medical floor, without telemetry. She has no major complaints today. Laboratory data today includes a normal CBC, a sodium 138, potassium 3.1, chlorides 105, CO2 22, anion gap 11, BUN 9, creatinine 0.45. Chest x-ray from yesterday, is greatly improved from prior x-rays. Objective - Vital Signs Vital signs: Vital Signs Temp 98.0 F 04/15/21 08:00 Pulse 83 04/15/21 08:00 Resp 20 04/15/21 08:00 BP 132/61 04/15/21 08:00 Pulse Ox 92 L 04/15/21 08:00 Intake & Output 04/14/21 04/15/21 04/15/21 18:59 06:59 18:59 Intake Total 465.709 4651 Output Total 1475 1510 Balance -706.217 -470 Weight 101.469 kg 102.2 kg Intake: IV 300 1040 D5-0.45% NaCl with KCl 300 20Meq/l 1,000 ml @ 150 mls/hr IV .Q6H40M [facility] Rx# :[id number] Lactated Ringers 1,000 ml 840 @ 70 mls/hr IV .[id number] [facility] Rx#:[id number] Piperacillin-Tazobactam 3 200 .375 gm In Sodium Chloride 0.9% 100 ml @ 25 mls/hr IVPB Q8H [facility] Rx#: [id number] Intake, IV Titration 468.783 Amount Dextrose 5%-0.45% NaCl 1, 0 000 ml @ 150 mls/hr IV . Q6H40M [facility] Rx#:[id number] Insulin Regular 100 unit 18.783 In Sodium Chloride 0.9% 100 ml @ 0.1 UNITS/KG/HR 9.987 mls/hr IV .Q10H7M [facility] Rx#:[id number] Lactated Ringers 1,000 ml 350 @ 70 mls/hr IV .[id number] [facility] Rx#:[id number] Piperacillin-Tazobactam 3 100 .375 gm In Sodium Chloride 0.9% 100 ml @ 25 mls/hr IVPB Q8H [facility] Rx#: [id number] Output: Urine 1475 1510 Other: Voiding Method Indwelling Catheter Indwelling Catheter Toilet - Exam No acute distress, oriented 3. Currently on room air, without respiratory distress. HEENT examination is grossly unremarkable. Neck supple. Full range of motion. No adenopathy thyromegaly or neck vein distention. Cardiovascular examination reveals regular rhythm rate. S1-S2 normal. No S3 or S4. No discernible murmur noted. Heart rate is 83 bpm. Lungs reveal clear breath sounds. Breath sounds are equal bilaterally. No adventitious lung sounds including wheezes rhonchi or crackles. On room air, saturations are 92%. Abdomen soft bowel sounds are heard. No masses or tenderness. Extremities are intact. No cyanosis clubbing or edema. Skin is without rash or lesion. Neurologic examination is brief but nonfocal. - Labs CBC & Chem 7: 04/15/21 04:32 04/15/21 04:32 Labs: Abnormal Lab Results - Last 24 Hours (Table) 04/14/21 04/14/21 04/14/21 Range/Units 12:00 14:10 17:39 Potassium (3.5-5.1) mmol/L Creatinine (0.52-1.04) mg/dL POC Glucose (mg/dL) 192 H 186 H 118 H (75-99) mg/dL Total Protein (6.3-8.2) g/dL Albumin (3.5-5.0) g/dL 04/14/21 04/15/21 04/15/21 Range/Units 20:39 04:32 08:05 Potassium 3.1 L (3.5-5.1) mmol/L Creatinine 0.45 L (0.52-1.04) mg/dL POC Glucose (mg/dL) 113 H 131 H (75-99) mg/dL Total Protein 6.2 L (6.3-8.2) g/dL Albumin 3.3 L (3.5-5.0) g/dL Assessment and Plan Assessment: Acute diabetic ketoacidosis, possibly triggered by coronavirus infection. No clearcut evidence of coronavirus associated pneumonia. Severe metabolic acidosis, secondary to DKA. Acute kidney injury, secondary to ATN. History of diabetes mellitus. History of hypertension. She of hyperlipidemia. History of obstructive sleep apnea syndrome. History of lifelong nontobacco use. Plan: Plan dated 04/14/2021. The patient can be transitioned from an insulin drip, to subcutaneous insulin. The patient's blood sugar was less than 200, bicarbonate concentration greater than 18, and her anion gap was normal. Currently, the patient's doing reasonably well. She is not manifesting any signs or symptoms of pneumonia. We'll continue to follow. Once transitioned, the patient can be transferred out of the intensive care unit. Plan dated 04/15/2021. The patient is stable to be transferred out of the intensive care unit. The patient's most recent blood sugar, anion gap, and bicarbonate concentration, are all normal. The patient really does not need any lactated Ringer's. That IV can be discontinued. In addition, because of pro-calcitonin level is normal, the Zosyn can be discontinued. Additional recommendations and suggestions are forthcoming. Time with Patient: Less than 30
--- NOTE | 2021-04-15 11:26 | P.DS ---
Providers Date of admission: 04/12/21 11:16 Expected date of discharge: 04/15/21 Attending physician: Eren Zafar Consults: 04/12/21 11:16 Consult Physician Stat Consulting Provider: Elizabet Gilmore Consult Reason/Comments: acute dka, acute covid Do you want consulting provider notified?: Already Contacted 04/12/21 12:00 Consult Physician Routine Consulting Provider: Lizette Kaplan Consult Reason/Comments: AKF Do you want consulting provider notified?: Yes Primary care physician: Melinda Chau [facility] Course: HISTORY OF PRESENT ILLNESS 66-year-old female one of Dr. Chau's patient with past medical history of 2 diabetes on insulin mix 85 units twice a day along with Invokana and metforminwas her blood sugar has been quite bit elevated lately. Patient was vaccinated against the COVID-19 earlier in 2019 developed to be sick for the last 10 days has not been able to take her insulin or oral hypoglycemic agent for the last week. Patient presented to the emergency department todaywith severe gastrointestinal symptom with fever chills nausea vomiting and diarrhea along with sore throat her sickness episode started over 10 days ago, patient has not been able to eat or drink lately she was seen at the emergency department was in DKA with positive acetone with blood sugar over 700 at the time. Patient was running fever and chills, also found to be in acute kidney failure with creatinine of 3.47 with GFR of 13 and potassium of 6.6. Patient was started on IV hydration, Flanagan catheter was in place, started on IV insulin drip she will be admitted to the ICU will be seen pulmonary and nephrology. her COVID-19 was positivechest x-ray showed low lung volume with interstitial marking minimal bibasilar subsegmental atelectasis left lower lobe greater than the right with left lower lobe infiltrate no pneumothorax or pleural effusion. 04/13: Patient blood sugar is down to the 200 but she still have positive acetone and still very acidotic this point with bicarbonate quite bit low. Her bicarbonate will be stopped today significant improvement in kidney function compared to yesterday. Still found left sided infiltrate on a chest x-ray was start patient on Zosyn. Patient fever or chills nausea and GI symptoms are much better. She was taking off Decadron apparently she does not meet any criteria for antiviral management at this point. 04/14: Patient is doing very well blood sugars below 200 patient had closed her anion gap at this point. Patient will be off insulin drip started on Levemir 15 units twice a day and NovoLog 10 units before meals meals plus sliding scales. Patient still does not require any management for COVID-19 she is improving significantly had no hypoxia this point. 04/15: Patient remains in the intensive care unit. Her blood sugars are improved running 88-131. CBC is normal. Potassium 3.1 and has been replaced. Patient has been afebrile, heart rate 83, blood pressure 132/61, pulse ox 92% on room air. DISCHARGE DIAGNOSES 1. DKA 2. Acute hypoxic respiratory failure: Combination of DKA along with possible covid pneumonitis 3. Right lower lobe infiltrate 4. acute kidney injury 5. type 2 diabetes was on insulin 6. hypertension 7. hyperlipidemia DISCHARGE PLAN Home Impression and plan of care have been directed as dictated by the signing physician. Bethany Valle nurse practitioner acting as scribe for signing physician. Patient Condition at Discharge: Stable Plan - Discharge Summary New Discharge Prescriptions: Continue metFORMIN HCL [Glucophage] 1,000 mg PO BID Rosuvastatin Calcium [Crestor] 40 mg PO DAILY Losartan [Cozaar] 25 mg PO DAILY Omeprazole 20 mg PO DAILY Canagliflozin [Invokana] 300 mg PO DAILY Pramipexole [Mirapex] 0.5 mg PO BID Changed Insulin Aspart Protam & Aspart [NovoLOG MIX 70-30 Flexpen] 50 unit SQ BID #0 Discharge Medication List Losartan [Cozaar] 25 mg PO DAILY 07/08/16 [History] Rosuvastatin Calcium [Crestor] 40 mg PO DAILY 07/08/16 [History] metFORMIN HCL [Glucophage] 1,000 mg PO BID 07/08/16 [History] Canagliflozin [Invokana] 300 mg PO DAILY 04/12/21 [History] Omeprazole 20 mg PO DAILY 04/12/21 [History] Pramipexole [Mirapex] 0.5 mg PO BID 04/12/21 [History] Insulin Aspart Protam & Aspart [NovoLOG MIX 70-30 Flexpen] 50 unit SQ BID #0 04/15/21 [Rx] Follow up Appointment(s)/Referral(s): Nurse,[facility] [NON-STAFF] - 1-2 Days Melinda Chau MD [Primary Care Provider] - 1 Week (Virtual visit 04/16) Patient Instructions/Handouts: Coronavirus Disease 2019 (COVID-19), Diabetic Ketoacidosis (DC), Meal Planning with Diabetes Exchanges (DC) Discharge Disposition: HOME WITH HOME HEALTH SERVICES
[2021-04-15 11:37] LABS: Glucose,Whole Blood 82 mg/dL (75-99)
== END 2021-04-15 12:45 | disposition home health service (06) | DRG 177 ==
LOC: EC 08:33 → 2SICU 11:16
PROVIDERS: ADMIT Internal Medicine Geriatric Medicine; ATTEND Internal Medicine Geriatric Medicine
DX: U07.1 COVID-19 (principal); E11.10 Type 2 diabetes mellitus with ketoacidosis without coma; J12.82 Pneumonia due to coronavirus disease 2019; N17.0 Acute kidney failure with tubular necrosis; J96.01 Acute respiratory failure with hypoxia; E87.5 Hyperkalemia; E87.6 Hypokalemia; E78.5 Hyperlipidemia, unspecified; I10 Essential (primary) hypertension; E86.9 Volume depletion, unspecified; Z79.4 Long term (current) use of insulin; Z79.899 Other long term (current) drug therapy; Z82.49 Family history of ischemic heart disease and other diseases of the circulatory system; Z90.710 Acquired absence of both cervix and uterus; G47.33 Obstructive sleep apnea (adult) (pediatric)
CPT/HCPCS: 36415; 36600; 71045; 80048; 80051; 80053; 81001; 82009; 82550; 82553; 82565; 82728; 82803; 82805; 82947; 83036; 83605; 83615; 83735; 84100; 84132; 84145; 84443; 84484; 84520; 85025; 85027; 85379; 85610; 85730; 86140; 87635; 93005; 96374; 96375; 99285

== ENCOUNTER → 2023-09-13 | Outpatient (CLI) | payer MEDICARE ==
--- NOTE | 2023-09-13 17:40 | BD ---
EXAMINATION TYPE: Axial Bone Density DATE OF EXAM: 09/13/2023 CLINICAL HISTORY: 68 years old Female. ICD-10 CODE: M85.80 OTHER DISORDER OF BONE Height: 63.5 in Weight: 238 lbs FRAX RISK QUESTIONS: History of Fracture in Adulthood: lt ankle fx age 30; lt patella fx age 65 RISK FACTORS EXAM MEASUREMENTS: Bone mineral densitometry was performed using the [employer] System. Bone mineral density as measured about the Lumbar spine is: ----- L1-L4(G/cm2): 1.122 T Score Values are as follows: ----- L1: -0.9 ----- L2: -0.7 ----- L3: -0.2 ----- L4: -0.3 ----- L1-L4: -0.5 Z Score Values are as follows: ----- L1: -0.4 ----- L2: -0.2 ----- L3: 0.3 ----- L4: 0.2 ----- L1-L4: 0.0 Bone mineral density has: Decreased -3.0% since study of: 05/12/2018 Bone mineral density about the R hip (g/cm2): 0.921 Bone mineral density about the L hip (g/cm2): 0.875 T Score values are as follows: -----R Neck: -2.0 -----L Neck: -2.3 -----R Total: -0.7 -----L Total: -1.1 Z Score values are as follows: -----R Neck: -1.1 -----L Neck: -1.4 -----R Total: -0.1 -----L Total: -0.5 Bone mineral density has: Decreased -2.8% since study of: 05/12/2018 FRAX%s: The graph provided illustrates a 10.6% chance for a major osteoporotic fx and a 2.0% chance f or the hips probability for fx in 10 years time. IMPRESSION: Osteopenia (T Score between -2.5 and -1). There is slightly increased risk of fracture and the patient may be considered for treatment. Re-Screen 2-5 years. NOTE: T-SCORE=SD OF THE YOUNG ADULT MEAN.
--- NOTE | 2023-09-16 20:06 | MM ---
Reason for Exam: Screening (asymptomatic). Last mammogram was performed 1 year(s) and 1 month(s) ago. Patient History: Menarche at age 11. Left ovary removed at age 46. Right ovary removed at age 46. Hysterectomy at age 46. Postmenopausal. Hormonal Contraceptives for 4 years, 6 months. Cyst Aspiration on the Right side. Maternal aunt had breast cancer. Risk Values: Skylar 5 year model risk: 1.4%. NCI Lifetime model risk: 4.4%. Prior Study Comparison: 06/26/2014 Screening Mammogram, Unknown. 04/07/2016 Screening Mammogram, Unknown. 05/12/2018 Bilateral Screening Mammogram, [facility]. 08/19/2022 Bilateral Screening Mammogram, [facility]. Tissue Density: There are scattered fibroglandular densities. Findings: Analyzed By CAD. Benign oil cyst calcifications on the right. Chronic nodularity subareolar left MLO view. There is no suspicious group of microcalcifications or new suspicious mass in either breast. Overall Assessment: Benign, BI-RAD 2 Management: Screening Mammogram of both breasts in 1 year. . Patient should continue monthly self-breast exams. A clinical breast exam by your physician is recommended on an annual basis. This exam should not preclude additional follow-up of suspicious palpable abnormalities. Note on Skylar scores and lifetime risk: 1. A Skylar score greater than 3% is considered moderate risk. If this is the case, consider specialist referral to assess eligibility for a risk reducing agent. 2. If overall lifetime risk for the development of breast cancer is 20% or higher, the patient may qualify for future screening with alternating mammogram and breast MRI. Electronically signed and approved by: Faith Ngo M.D. Radiologist
== END | disposition home or self-care (01) ==
LOC: RADMAMWWP 13:28
PROVIDERS: ATTEND Family Medicine
DX: Z12.31 Encounter for screening mammogram for malignant neoplasm of breast (principal); M85.88 Other specified disorders of bone density and structure, other site; Z85.89 Personal history of malignant neoplasm of other organs and systems
CPT/HCPCS: 77063; 77067; 77080

== ENCOUNTER → 2025-01-05 | Outpatient (CLI) | payer MEDICARE ==
--- NOTE | 2025-01-08 11:29 | MM ---
Reason for Exam: Screening (asymptomatic). Last mammogram was performed 1 year(s) and 4 month(s) ago. Patient History: Menarche at age 11. First Full-Term at age 38. Late child-bearing (after 30). Left ovary removed at age 46. Right ovary removed at age 46. Hysterectomy at age 46. Postmenopausal. Hormonal Contraceptives for 4 years, 6 months. Cyst Aspiration on the Right side. Maternal aunt had breast cancer. Risk Values: Skylar 5 year model risk: 1.4%. NCI Lifetime model risk: 4.2%. Prior Study Comparison: 05/12/2018 Bilateral Screening Mammogram, [facility]. 08/19/2022 Bilateral Screening Mammogram, [facility]. 09/13/2023 Bilateral MG 3D screening mammo w/cad, [facility]. Tissue Density: There are scattered areas of fibroglandular density. Findings: Analyzed By CAD. There is no suspicious group of microcalcifications or new suspicious mass in either breast. Benign-appearing calcifications. Overall Assessment: Benign, BI-RAD 2 Management: Screening Mammogram of both breasts in 1 year. . Patient should continue monthly self-breast exams. A clinical breast exam by your physician is recommended on an annual basis. This exam should not preclude additional follow-up of suspicious palpable abnormalities. Note on Skylar scores and lifetime risk: 1. A Skylar score greater than 3% is considered moderate risk. If this is the case, consider specialist referral to assess eligibility for a risk reducing agent. 2. If overall lifetime risk for the development of breast cancer is 20% or higher, the patient may qualify for future screening with alternating mammogram and breast MRI. [facility], , 01/05/2025 10:20 AM. Electronically signed and approved by: Eren Alcala M.D. Radiologis
== END | disposition home or self-care (01) ==
LOC: RADMAMWWP 10:03
PROVIDERS: ATTEND Family Medicine
DX: Z12.31 Encounter for screening mammogram for malignant neoplasm of breast (principal); R92.323 Mammographic fibroglandular density, bilateral breasts; Z78.0 Asymptomatic menopausal state; Z80.3 Family history of malignant neoplasm of breast; Z92.0 Personal history of contraception
CPT/HCPCS: 77063; 77067